=== PATIENT | female | born 1990 | race Caucasian/White ===

== ENCOUNTER 2017-02-02 03:29 | Inpatient (IN) | payer OTHER, SELFPAY | END 2017-02-04 10:00 | disposition home or self-care (01) | DRG 775 | PROVIDERS: Admitting Provider Nurse Practitioner Obstetrics & Gynecology; Visit Provider Nurse Practitioner Obstetrics & Gynecology | DX: O69.81X0 Labor and delivery complicated by cord around neck, without compression, not applicable or unspecified (principal); Z37.0 Single live birth; Z3A.39 39 weeks gestation of pregnancy | CPT/HCPCS: 59409; 36415; 59025; 80305; 81001; 82800; 85014; 85018; 85025; 86850; 86870; 86900; 86901; 90707; 94762; C1758; J0595 ==

== ENCOUNTER → 2017-07-05 10:59 | Outpatient (CLI) | payer OTHER, SELFPAY ==
[2017-07-05 11:28] LABS: Basophils % 0.3 % (0.1-2.0); Eosinophils # 0.2 K/mm3 (0.0-0.4); Eosinophils % 1.4 % (0.1-12.0); Hematocrit 44.4 % (37.0-47.0); Hemoglobin 14.8 g/dL (12.2-16.2); Lymphocytes # 2.9 K/mm3 (0.7-4.5); Lymphocytes % 28.5 K/mm3 (10-50); Mean Corpuscular HGB Conc 33.3 g/dL (31.8-35.4); Mean Corpuscular Hemoglobin 31.2 pg (27.0-31.2); Mean Corpuscular Volume 93.9 fl (81-99); Mean Platelet Volume 7.2 fl (7.4-10.4); Monocytes # 0.6 K/mm3 (0.1-1.0); Monocytes % 5.5 % (1.7-9.3); Neutrophils # 6.6 K/mm3 (1.8-7.8); Neutrophils % 64.3 % (37.0-80.0); Platelet Count 332 K/mm3 (142-424); Red Blood Count 4.72 M/mm3 (4.20-5.40); Red Cell Distribution Width 12.4 % (11.5-17.5); White Blood Count 10.3 K/mm3 (4.8-10.8)
[2017-07-05 12:19] LABS: HCG Qualitative, Serum Negative (Negative)
[2017-07-05 15:09] LABS: Anion Gap 15.7 mEq/L (5-15); Blood Urea Nitrogen 20 mg/dL (7-18); Carbon Dioxide 29 mmol/L (21.0-32.0); Chloride 100 mmol/L (98-107); Creatinine,Serum 0.95 mg/dL (0.55-1.02); Estimated Glomerular Filt Rate 70 ml/min (>60); GFR (African American) 84 ML/MIN (>60); Glucose 89 mg/dL (74-106); Potassium 4.7 mmoL/L (3.5-5.1); Sodium 140 mmol/L (136-145)
== END ==
PROVIDERS: Visit Provider Nurse Practitioner Obstetrics & Gynecology
DX: Z01.818 Encounter for other preprocedural examination (principal)
CPT/HCPCS: 36415; 80048; 84703; 85025

== ENCOUNTER → 2019-05-21 13:50 | Outpatient (CLI) | payer MEDICAID, SELFPAY | PROVIDERS: Visit Provider Emergency Medicine | DX: N39.0 Urinary tract infection, site not specified (principal) | CPT/HCPCS: 87086 ==

== ENCOUNTER 2020-08-10 10:32 | Emergency (ER) | payer MEDICAID, SELFPAY ==
[2020-08-10 10:35] VITALS: BP 149/79; PULSE 76; RESP 17; TEMP 36.6; O2SAT 99; BMI 21.4
[2020-08-10 11:09] LABS: Color,Urine Orange (Yellow)
[2020-08-10 11:10] LABS: Apearance,Urine Cloudy (Clear); Bilirubin,Urine Negative (Negative); Blood, Urine 1+ (Negative); Glucose,Urine (UA) 100 (Negative); Ketones,Urine TRACE (Negative); PH,Urine 5.5 (5.0-8.5); Protein,Urine 1+ (Negative); UTC Leukocyte Esterase,Urine 1+ (Negative); UTC Nitrate,Urine Positive (Negative); Urobilinogen,Urine 1 EU/dl (0.2)
--- NOTE | 2020-08-10 11:18 | HMH.EDUTC ---
[facility] [place] Clinical Impression: UTI (urinary tract infection) Qualifiers: Urinary tract infection type: site unspecified Hematuria presence: with hematuria Qualified Code(s): N39.0 - Urinary tract infection, site not specified Disposition: Home, Self-Care Condition on Discharge: Good Instructions: Trimethoprim/Sulfamethoxazole (Alternative Therapy), DI for Urinary Tract Infection (UTI) Additional Instructions: *Increase fluids. Water not Soda or Tea *Start antibiotic immediately and be sure to take as ordered for the FULL length of time although you should start to see improvement over the next 48 hours *Pyridium as needed Remember this medication will turn your urine [place]. This is normal but it will stain what ever it gets on *You should not use Pyridium for more than 48 hours. If so , follow up with your primary physician to review urine culture and ensure that antibiotic is adequate for infection *Be SURE to follow up anytime for new or worsening symptoms with your family doctor. AND in 48 hours for urine culture results with your family doctor, if you do not have a doctor then you may call back to the [facility] for urine culture results and further treatment. We do recommend that you choose and establish care with a Primary Care Physician. AND follow up with them in 10-14 days to repeat UA to ensure infection is resolved and blood no longer present *Be sure to let your PCP know that we sent urine cultures from the [facility] so they can follow up to ensure that you area the on the correct antibiotic Call your doctor office and make appointment for 48 hours (2 days from today) to follow up and get the results of your urine culture and further treatment Return if needed Follow up with your Family Doctor for further evaluation and treatment and to recheck urine Straight to ER if any life threatening symptoms Prescriptions: Sulfamethoxazole/Trimethoprim [Bactrim DS tablet] 1 each PO BID 7 Days #14 tab Transmission Status: Received by [id number] Phenazopyridine HCl [Pyridium 200mg Tablet] 200 pow PO TID #6 tab Transmission Status: Received by [id number] Referrals: Dariana Paz PA [Primary Care Provider] - As needed Time of Disposition: 11:31 Medical Decision Making - Jaswinder Inquiry Pt receiving controlled substance: No Jaswinder was queried for this patient: No Vital Signs: 08/10/20 10:35 08/10/20 11:32 Temperature 97.9 F 97.9 F Temperature Source Oral Pulse Rate 76 Pulse Rate [Right Brachial] 76 Respiratory Rate 17 17 Blood Pressure 149/79 H Blood Pressure [Right Arm] 149/79 H Blood Pressure Mean [Right Arm] 102 Blood Pressure Source [Right Arm] Automatic Cuff Blood Pressure Position [Right Arm] Sitting 02 Sat by Pulse Oximetry 99 Oxygen Delivery Method Room Air - Lab Data Lab results reviewed: Yes: I reviewed the patient's lab results. Lab Results 08/10/20 11:08: Urine Color [place], Urine Appearance Cloudy, Urine pH 5.5, Ur Specific [place] 1.020, Urine Protein 1+, Urine Glucose (UA) 100, Urine Ketones Trace, Urine Blood 1+, Urine Nitrate Positive A, Urine Bilirubin Negative, Urine Urobilinogen 1, Ur Leukocyte Esterase 1+ A Orders (Tests/Meds): ORDERS Category Date Time Status Urine Culture Stat Micro 08/10/20 11:00 Received Medical Decision Narrative: Patient denies history of kidney stones, denies radiation of pain, denies fever, chill, body aches or weakness [facility] [place] - General Stated complaint: pain when urinating, pain lower abd Time Seen by Provider: 08/10/20 11:18 Mode of Arrival: Ambulatory Source of Information: Patient Limitations: No Limitations Description of Symptoms (Recalled from Triage Doc. by RN): PATIENT C/O LOWER ABDOMINAL AND BACK PAIN WITH PAINFUL URINATION X 3 DAYS HEENT Symptoms (Recalled from RN notes): No Resp Symptoms (Recalled from RN notes): No Skin Symptoms (Recalled from RN notes): No MS Symptoms (Recalled from RN notes): No
[2020-08-10 11:32] VITALS: BP 149/79; PULSE 76; RESP 17; TEMP 36.6; O2SAT 99
== END 2020-08-10 11:36 | disposition home or self-care (01) ==
PROVIDERS: Emergency Provider Nurse Practitioner; PCP Physician Assistant
DX: N30.00 Acute cystitis without hematuria (principal); F33.1 Major depressive disorder, recurrent, moderate; Z87.442 Personal history of urinary calculi; F17.210 Nicotine dependence, cigarettes, uncomplicated; Z88.0 Allergy status to penicillin
CPT/HCPCS: 81003; 87086; 87088; 87186; 87880; 99202; G0463

== ENCOUNTER 2022-04-07 10:08 | Emergency (ER) | payer MEDICAID, SELFPAY ==
--- NOTE | 2022-04-07 10:32 | EXP.UTC ---
Discharge Plan Disposition Patient Disposition: Home, Self-Care Condition: Good Prescriptions Prescriptions: New clindamycin HCl 300 mg capsule 300 mg PO Q8H 10 Days Qty: 30 0RF mupirocin 2 % ointment 1 applic topical TID 10 Days Qty: 22 0RF Rx Instructions: apply to lesions as prescribed No Action venlafaxine 75 mg capsule,extended release 24hr See Rx Instructions .ROUTE .COMPLEX Qty: 30 1RF Dose Instruction: TAKE 1 CAPSULE BY MOUTH EVERY DAY AT BEDTIME FOR DEPRESSION Rx Instructions: TAKE 1 CAPSULE BY MOUTH EVERY DAY AT BEDTIME FOR DEPRESSION phenazopyridine 200 MG tablet 200 pow PO TID Qty: 6 0RF sulfamethoxazole-trimethoprim 1 EACH tablet 1 each PO BID 7 Days Qty: 14 0RF Referrals Follow up/Referrals: Dariana Paz PA [Primary Care Provider] - See instructions Activity Restrictions/Add. Instructions Additional Instructions/Restrictions: Take oral antibiotics as prescribed Follow up with your Family Doctor if no improvement or any worsening of symptoms Return if needed Go Straight to ER if any life threatening symptoms, worsening of symptoms or uncontrollable fever Clinical Impressions Clinical Impression: Impetigo Discharge ED Provider: Erika Osman [facility] HPI General Stated complaint: Rash fever bodyaches congestion drainage Time Seen by Provider: 04/07/22 10:32 History of Present Illness Provider Complaint: Patient states that she noticed she started having sore like lesions on her chin, face, around her hairline, and on her right shoulder States that she has been using neosporin but not got any better States that she was worried it was going to get infected so she came in Related Data Previous Rx's Medication Instructions Recorded phenazopyridine 200 mg tablet 200 pow PO TID #6 tabs 08/10/20 sulfamethoxazole 800 1 each PO BID 7 days #14 tabs 08/10/20 mg-trimethoprim 160 mg tablet venlafaxine 75 mg capsule,extended See Rx Instructions .Route 02/25/22 release 24 hr .COMPLEX #30 caps clindamycin HCl 300 mg capsule 300 mg PO Q8H 10 days #30 caps 04/07/22 mupirocin 2 % topical ointment 1 applic topical TID 10 days #22 04/07/22 grams Allergies Allergy/AdvReac Type Severity Reaction Status Date / Time Penicillins [PENICILLINS] Allergy Mild Verified 04/07/22 10:47 PFSH PFSH Disclaimer: The information contained in this section may have been updated after the patient was seen, as this information can be updated by other users. Social History Smoking Status: Current every day smoker tobacco type: cigarettes packs per day: 1 second hand exposure: No alcohol intake: never substance use type: denies use current occupational status: other Travel in the last 8 weeks: None household members: children housing: house current occupational exposures/hazards: No caffeine: Yes ROS Obtained: Yes All systems reviewed & no additional complaints except as documented and Yes Systems reviewed as appropriate & no additional complaints except as documented Constitutional Constitutional: Reports system reviewed and no additional complaints, except as documented and Reports as per HPI ENT Ears, Nose, Mouth, and Throat: Reports system reviewed and no additional complaints, except as documented and Reports as per HPI Cardiovascular Cardiovascular: Reports system reviewed and no additional complaints, except as documented and Reports as per HPI Respiratory Respiratory: Reports system reviewed and no additional complaints, except as documented and Reports as per HPI Gastrointestinal Gastrointestingal: Reports system reviewed and no additional complaints, except as documented and as per HPI Integumentary/Breasts Skin/Breast: Reports system reviewed and no additional complaints, except as documented, Reports as per HPI and Reports rash Physical Exam General General appearance: alert and in no apparent distress Respiratory Respiratory
[2022-04-07 10:53] VITALS: BP 140/89; PULSE 110; RESP 18; TEMP 36.8; O2SAT 98; BMI 20.5
[2022-04-07 11:15] VITALS: BP 140/90; PULSE 90; RESP 18; TEMP 36.8; O2SAT 98
== END 2022-04-07 11:16 | disposition home or self-care (01) ==
PROVIDERS: Emergency Provider Nurse Practitioner; PCP Physician Assistant
DX: L01.00 Impetigo, unspecified (principal)
CPT/HCPCS: 99212; 99213; G0463

== ENCOUNTER → 2022-06-29 14:38 | Outpatient (CLI) | payer MEDICAID, SELFPAY ==
[2022-06-29 14:36] LABS: Alanine Aminotransferase 233 U/L (12-78); Albumin Level 4.6 g/dl (3.5-5.0); Albumin/Globulin Ratio 1.7 (1.1-1.8); Alkaline Phosphatase 105 U/L (38-126); Anion Gap 19.8 mEq/L (5-15); Bilirubin,Total 0.5 mg/dl (0.2-1.3); Blood Urea Nitrogen 3 mg/dl (7-17); Carbon Dioxide 27 mmol/L (22.0-30.0); Chloride 96 mmol/L (98-107); Estimated Glomerular Filt Rate 183 ml/min (>60); GFR (African American) 221 ML/MIN (>60); Globulin 2.7 g/dL (1.3-3.2); Glucose 108 mg/dl (74-100); Sodium 140 mmol/L (136-145); Total Protein,Serum 7.3 g/dl (6.3-8.2)
[2022-06-29 14:53] LABS: Potassium 2.8 mmoL/L (3.5-5.1)
[2022-06-29 15:04] LABS: Aspartate Amino Transferase 740 U/L (14-36)
[2022-06-29 15:42] LABS: Basophils # 0.1 K/mm3 (0-0.2); Basophils % 1.2 % (0.1-2.0); Eosinophils # 0.1 K/mm3 (0.0-0.4); Eosinophils % 1.6 % (0.1-12.0); Hemoglobin 13.4 g/dL (12.2-16.2); Lymphocytes # 1.6 K/mm3 (0.7-4.5); Lymphocytes % 27.6 % (10-50); Mean Corpuscular HGB Conc 31.2 g/dL (31.8-35.4); Mean Corpuscular Hemoglobin 32.2 pg (27.0-31.2); Mean Corpuscular Volume 103.3 fl (81-99); Mean Platelet Volume 9.3 fl (7.4-10.4); Monocytes # 0.8 K/mm3 (0.1-1.0); Monocytes % 13.3 % (1.7-9.3); Neutrophils # 3.2 K/mm3 (1.8-7.8); Neutrophils % 56.3 % (37.0-80.0); Platelet Count 303 K/mm3 (142-424); Red Blood Count 4.17 M/mm3 (4.20-5.40); Red Cell Distribution Width 15.4 % (11.5-17.5); White Blood Count 5.7 K/mm3 (4.8-10.8)
== END ==
PROVIDERS: PCP Nurse Practitioner Family; Visit Provider Nurse Practitioner Family
DX: F41.9 Anxiety disorder, unspecified (principal)
CPT/HCPCS: 80053; 85025

== ENCOUNTER → 2022-07-01 11:20 | Outpatient (CLI) | payer MEDICAID, SELFPAY ==
[2022-07-01 15:14] LABS: Chloride 92 mmol/L (98-107); Potassium 3.4 mmoL/L (3.5-5.1); Sodium 138 mmol/L (136-145)
[2022-07-01 15:17] LABS: Alanine Aminotransferase 179 U/L (12-78); Albumin Level 4.2 g/dl (3.5-5.0); Albumin/Globulin Ratio 1.8 (1.1-1.8); Alkaline Phosphatase 98 U/L (38-126); Anion Gap 19.4 mEq/L (5-15); Aspartate Amino Transferase 423 U/L (14-36); Bilirubin,Total 0.5 mg/dl (0.2-1.3); Blood Urea Nitrogen 4 mg/dl (7-17); Calcium 8.5 mg/dl (8.4-10.2); Carbon Dioxide 30 mmol/L (22.0-30.0); Estimated Glomerular Filt Rate 183 ml/min (>60); GFR (African American) 221 ML/MIN (>60); Globulin 2.3 g/dL (1.3-3.2); Glucose 100 mg/dl (74-100); Lipase 499 U/L (23-300); Total Protein,Serum 6.5 g/dl (6.3-8.2)
[2022-07-02 09:26] LABS: Vitamin B12 604 pg/mL (239-931)
[2022-07-03 13:33] LABS: HBsAg Screen Negative (Negative); Hep A Ab, IGM Negative (Negative); Hep B Core Ab, IgM Negative (Negative)
[2022-07-09 21:25] LABS: HCV Ab 0 s/co rat (0.0-0.9)
== END ==
PROVIDERS: PCP Family Medicine; Visit Provider Family Medicine
DX: E87.6 Hypokalemia (principal); R74.01 Elevation of levels of liver transaminase levels
CPT/HCPCS: 80053; 80074; 82607; 83690

== ENCOUNTER 2022-10-13 06:09 | Emergency (ER) | payer MEDICAID, SELFPAY ==
--- NOTE | 2022-10-13 06:08 | ECG_ITS ---
APPROVED REPORT Exam: Resting ECG HR:132 bpm ECG Measurements Heart Rate 132 AXES [place] 124 P 78 QRSd 82 QRS 62 QT 332 T 70 QTc 410 Conclusion SINUS TACHYCARDIA NONSPECIFIC T-WAVE ABNORMALITY ABNORMAL RHYTHM ECG UNCONFIRMED REPORT Electronically signed by : Delfino Reyes MD 10/15/2022 08:44:49
[2022-10-13 06:17] VITALS: BP 176/102; PULSE 131; RESP 32; TEMP 36.8; O2SAT 100; BMI 26.1
[2022-10-13 07:05] LABS: Basophils % 0.2 % (0.1-2.0); Eosinophils # 0.2 K/mm3 (0.0-0.4); Eosinophils % 0.8 % (0.1-12.0); Hematocrit 47.7 % (37.0-47.0); Hemoglobin 14.4 g/dL (12.2-16.2); Lymphocytes # 0.7 K/mm3 (0.7-4.5); Lymphocytes % 3.5 % (10-50); Mean Corpuscular HGB Conc 30.2 g/dL (31.8-35.4); Mean Corpuscular Hemoglobin 34.7 pg (27.0-31.2); Mean Platelet Volume 9.3 fl (7.4-10.4); Monocytes # 1.2 K/mm3 (0.1-1.0); Monocytes % 6.4 % (1.7-9.3); Neutrophils # 16.9 K/mm3 (1.8-7.8); Neutrophils % 89.1 % (37.0-80.0); Platelet Count 257 K/mm3 (142-424); Red Blood Count 4.15 M/mm3 (4.20-5.40); Red Cell Distribution Width 13.7 % (11.5-17.5)
[2022-10-13 07:08] LABS: Chloride 93 mmol/L (98-107); Potassium 4.8 mmoL/L (3.5-5.1); Sodium 139 mmol/L (136-145)
--- NOTE | 2022-10-13 07:09 | HMH.EDGENADL ---
Discharge Plan Disposition Patient Disposition: Still a Patient Condition: Fair Prescriptions Prescriptions: No Action venlafaxine 75 mg capsule,extended release 24hr See Rx Instructions .ROUTE .COMPLEX Qty: 30 1RF Dose Instruction: TAKE 1 CAPSULE BY MOUTH EVERY DAY AT BEDTIME FOR DEPRESSION Rx Instructions: TAKE 1 CAPSULE BY MOUTH EVERY DAY AT BEDTIME FOR DEPRESSION montelukast [Singulair] 10 mg tablet 10 mg PO DAILY Qty: 30 2RF potassium chloride 10 mEq capsule, extended release 10 meq PO DAILY Qty: 14 0RF Referrals Follow up/Referrals: Provider,Referral, [Referring] - See instructions Clinical Impressions Clinical Impression: Shortness of breath, Tachycardia, Vomiting, Pneumomediastinum Stand Alone Forms Stand Alone Forms: Transfer Record - ED Discharge ED Provider: Ju Sanches General Adult HPI <Durga Puente MD - Last Filed: 10/13/22 07:19> General Chief complaint: Nausea/Vomiting/Diarrhea Stated complaint: Short of breath Time Seen by Provider: 10/13/22 06:13 Mode of Arrival: Family Vehicle Source of Information: Patient Limitations: No Limitations Description of Symptoms (Recalled from ER Triage Doc. by RN): ALERT AND ORIENTED, COMPLAINS OF N/V ABD PAIN.,SOA; HASN'T HAD HER EFFEXOR FOR 4-5 DAYS History of Present Illness HPI narrative: Is a 32-year-old female with history of anxiety, depression, not currently on control presenting with vomiting. Patient states that she started vomiting about 24 hours prior to arrival. Since that time, developed epigastric abdominal pain. No fevers or chills, dysuria, hematuria, vaginal discharge or bleeding, chest pain, shortness of breath, cough, rash, or any other concerns. Has tried taking Pepto-Bismol, Tylenol and Motrin, but throws everything up. Has not been able to tolerate p.o. intake in about 24 hours. Also, patient states that she ran out of her Effexor about 4 days ago, but takes 75 mg daily. This is not the first time she has run out of this medication, but did not have the symptoms previously. Related Data Previous Rx's Medication Instructions Recorded montelukast 10 mg tablet 10 mg PO DAILY #30 tabs 06/29/22 (Singulair) potassium chloride 10 mEq 10 meq PO DAILY #14 caps 06/29/22 capsule,extended release venlafaxine 75 mg capsule,extended See Rx Instructions .Route 06/29/22 release 24 hr .COMPLEX #30 caps Allergies Allergy/AdvReac Type Severity Reaction Status Date / Time Penicillins [PENICILLINS] Allergy Mild Verified 07/01/22 10:27 PFS <Durga Puente MD - Last Filed: 10/13/22 07:19> PFS Disclaimer: The information contained in this section may have been updated after the patient was seen, as this information can be updated by other users. Social History Smoking Status: Unknown if ever smoked second hand exposure: No alcohol intake: never substance use type: denies use current occupational status: other Travel in the last 8 weeks: None household members: children housing: house current occupational exposures/hazards: No caffeine: Yes <Durga Puente MD - Last Filed: 10/13/22 07:19> ROS Obtained: Yes All systems reviewed & no additional complaints except as documented Physical Exam <Durga Puente MD - Last Filed: 10/13/22 07:19> General General appearance: alert, in no apparent distress, anxious and other ( ) Head Head exam: atraumatic and normocephalic Eye Eye exam: Present normal appearance, PERRL and EOMI ENT ENT exam: Present mucous membranes moist Neck Neck exam: Present normal inspection, full ROM and trachea midline Respiratory Respiratory exam: Absent respiratory distress, wheezes, stridor, accessory muscle use or prolonged expiratory phase Cardiovascular Cardiovascular exam: Present normal rhythm and tachycardia Abdominal Exam Abdominal exam: Present soft and tenderness; Absent distention, guar
[2022-10-13 07:11] LABS: Alanine Aminotransferase 79 U/L (12-78); Albumin/Globulin Ratio 1.3 (1.1-1.8); Alkaline Phosphatase 157 U/L (38-126); Aspartate Amino Transferase 184 U/L (14-36); Bilirubin,Total 2.2 mg/dl (0.2-1.3); Blood Urea Nitrogen 11 mg/dl (7-17); Calcium 9.2 mg/dl (8.4-10.2); Creatinine Clearance Estimated 72 mL/min (50-200); Estimated Glomerular Filt Rate 51 ml/min (>60); GFR (African American) 62 ML/MIN (>60); Globulin 4.7 g/dL (1.3-3.2); Glucose 250 mg/dl (74-100); Lipase 184 U/L (23-300); Total Protein,Serum 10.7 g/dl (6.3-8.2)
--- NOTE | 2022-10-13 07:14 | XR_ITS ---
FINAL REPORT CLINICAL HISTORY: SOA FINDINGS: Two views of the chest were obtained. The heart size and pulmonary vascularity are within normal limits. The mediastinum is normal. No acute pulmonary abnormality is identified. There is no pneumothorax. The bony thorax is intact. IMPRESSION: No active cardiopulmonary disease. Reviewed, Interpreted and Dictated by Juanito Boucher III, MD Transcribed by Latosha Garcia Authenticated and [facility]
[2022-10-13 07:18] LABS: Anion Gap 45.8 mEq/L (5-15); Carbon Dioxide < 5 mmol/L (22.0-30.0)
--- NOTE | 2022-10-13 07:25 | US_ITS ---
FINAL REPORT CLINICAL HISTORY: abd pain/vomiting, transaminitis COMPARISON: None FINDINGS: Sonographic images of the right upper quadrant were obtained. The pancreas is partially obscured. There is fatty infiltration of the liver. The gallbladder appears normal without evidence of gallstones.There is no evidence of biliary ductal dilatation.The common duct measures 3 mm. Limited images of the right kidney are unremarkable. IMPRESSION: Fatty liver. Reviewed, Interpreted and Dictated by Juanito Boucher III, MD Transcribed by Susy Daugherty Authenticated and . [facility]
[2022-10-13 07:32] LABS: MANUAL DIFFERENTIAL MANUAL DIFFERENTIAL (MANUAL DIFF)
--- NOTE | 2022-10-13 07:32 | PC.NURSE ---
pt going to US
[2022-10-13 07:34] LABS: D-Dimer 0.69 ug/mL (0.0-0.5)
[2022-10-13 07:52] LABS: Lymphocytes % 8 % (10-50); Macrocytosis 2+; Monocytes % 2 % (2-9); Neutrophils % 90 % (42-76); Platelet Estimate Normal; Total Cells Counted 100
--- NOTE | 2022-10-13 08:02 | PC.NURSE ---
Addendum entered by Emily Robins RN 10/13/22 08:04: pt return from radiology Original Note: pt to radiology
--- NOTE | 2022-10-13 08:04 | CT_ITS ---
FINAL REPORT CLINICAL HISTORY: pain, shortness of breath, elevated dimer COMPARISON: None FINDINGS: Thin section axial CT images of the chest were obtained with contrast. 3D reformatted images were also obtained. This study was performed with techniques to keep radiation doses as low as reasonably achievable (ALARA). Individualized dose reduction techniques using automated exposure control or adjustment of mA and/or kV according to the patient's size were employed. There is motion artifact on many of the images decreasing sensitivity of this exam. There is no evidence of pulmonary embolism. There is no evidence of thoracic aortic aneurysm or dissection. There is no evidence of mediastinal or hilar mass or adenopathy. There is pneumomediastinum of uncertain etiology. Esophageal perforation not excluded. There is no evidence of pulmonary mass or nodule. No localized inflammatory process is seen within the lungs. There is a calcified granuloma at the right lung base. IMPRESSION: Pneumomediastinum of uncertain etiology. Reviewed, Interpreted and Dictated by Juanito Boucher III, MD Transcribed by Susy Daugherty Authenticated and [facility]
--- NOTE | 2022-10-13 08:04 | CT_ITS ---
FINAL REPORT CLINICAL HISTORY: abd pain, vomiting COMPARISON: None FINDINGS: CT OF THE ABDOMEN AND PELVIS WITH CONTRAST Axial CT images of the abdomen and pelvis were obtained after the administration of IV contrast. Coronal reformatted images were also obtained and reviewed. This study was performed with techniques to keep radiation doses as low as reasonably achievable (ALARA). Individualized dose reduction techniques using automated exposure control or adjustment of mA and/or kV according to the patient's size were employed. There is motion artifact on many of the images decreasing sensitivity of this exam. Abdomen: There is fatty infiltration of the liver. The spleen is unremarkable. No adrenal mass is present. The pancreas has an unremarkable appearance. The kidneys are normal, without evidence of mass or hydronephrosis. The aorta is normal in caliber. There is no free fluid or adenopathy. No mass or abnormal fluid collection is seen. Pelvis: The appendix is not visualized. The urinary bladder is unremarkable. No inflammatory process is seen. There is a 2.4 cm cyst in the right ovary. There is a small cyst in the left ovary. No evidence of adenopathy. There is no evidence of bowel obstruction. IMPRESSION: Fatty liver. Bilateral ovarian cysts up to 2.4 cm on the right. Reviewed, Interpreted and Dictated by Juanito Boucher III, MD Transcribed by Susy Daugherty Authenticated and . [facility]
--- NOTE | 2022-10-13 08:04 | PC.NURSE ---
rad staff gave verbal report on u/s to ER MD Sanches at this time
[2022-10-13 08:23] LABS: HCG Qualitative, Serum Negative (Negative)
[2022-10-13 08:35] VITALS: BP 151/88; PULSE 156; RESP 26; O2SAT 99
[2022-10-13 08:36] LABS: Acetaminophen < 10 ug/ml (10-30); Ethyl Alcohol < 10 mg/dl (0-10)
[2022-10-13 09:01] VITALS: BP 147/104; PULSE 72; O2SAT 97
[2022-10-13 09:14] LABS: T4 (Thyroxine) 7.3 ug/dl (5.53-11.0)
[2022-10-13 09:28] LABS: Thyroid Stimulating Hormone 2.74 uIU/mL (0.465-4.68)
--- NOTE | 2022-10-13 10:04 | PC.NURSE ---
MD at bedside discussing care and tests results thus far.
--- NOTE | 2022-10-13 10:22 | PC.NURSE ---
LAB CALLED FOR REPEAT BLOOD WORK
[2022-10-13 10:30] VITALS: PULSE 116; RESP 26; O2SAT 99
--- NOTE | 2022-10-13 10:37 | PC.NURSE ---
Contacting [facility] center
--- NOTE | 2022-10-13 10:40 | PC.NURSE ---
Dr. Sanches speaking with for possible transfer
--- NOTE | 2022-10-13 10:40 | PC.NURSE ---
1set of blood cultures, lactic, and chemistries collected from pt's IV @ [facility]
--- NOTE | 2022-10-13 10:41 | PC.NURSE ---
Lab at bedside to collect 2nd blood cultures
[2022-10-13 10:57] VITALS: BP 148/105; PULSE 121; O2SAT 100
[2022-10-13 11:09] LABS: Blood Urea Nitrogen 10 mg/dl (7-17); Calcium 7.9 mg/dl (8.4-10.2); Chloride 100 mmol/L (98-107); Creatinine Clearance Estimated 108 mL/min (50-200); Estimated Glomerular Filt Rate 82 ml/min (>60); GFR (African American) 99 ML/MIN (>60); Glucose 143 mg/dl (74-100); Lactic Acid 1.3 mmol/L (0.7-2.1); Potassium 5.3 mmoL/L (3.5-5.1); Sodium 135 mmol/L (136-145)
[2022-10-13 11:15] LABS: Anion Gap 35.3 mEq/L (5-15); Carbon Dioxide < 5 mmol/L (22.0-30.0)
--- NOTE | 2022-10-13 11:19 | PC.NURSE ---
critical lab reported to md gates CO2 less than 5
--- NOTE | 2022-10-13 11:54 | PC.NURSE ---
Report given to [id number]. Called Cardiac ICU and s/w Madina, clarified [facility] would go to 2nd floor CICU and are leaving now.
[2022-10-13 12:00] VITALS: BP 150/107; PULSE 115; RESP 25; TEMP 37.2; O2SAT 95
[2022-10-13 12:01] LABS: Microscopic, Urine URINE MICROSCOPIC (MICROSCOPIC)
[2022-10-13 12:02] LABS: Appearance,Urine CLEAR (Clear); Blood, Urine 2+ (Negative); Color,Urine YELLOW (Yellow); Glucose,Urine (UA) Negative (Negative); Ketones,Urine 3+ (Negative); Leukocyte Esterase,Urine Negative (Negative); Nitrate,Urine Negative (Negative); Protein,Urine 2+ (Negative); Urobilinogen,Urine 0.2 EU/dl (0.2)
[2022-10-13 12:04] LABS: Bilirubin,Urine 1+ (Negative)
[2022-10-13 12:14] LABS: Bacteria,Urine Trace /lpf; Squamous Epithelial Cell,Urine Occasional #/hpf (0-5)
== END 2022-10-13 12:02 | disposition still patient (30) ==
PROVIDERS: Emergency Medicine; Emergency Provider Emergency Medicine; PCP Physician Assistant
DX: J98.2 Interstitial emphysema (principal); R00.0 Tachycardia, unspecified; R11.10 Vomiting, unspecified; R10.13 Epigastric pain; F41.9 Anxiety disorder, unspecified; F32.A Depression, unspecified
CPT/HCPCS: 71046; 71275; 74177; 76705; 80048; 80053; 80329; 81001; 83605; 83690; 84436; 84443; 84703; 85007; 85025; 85378; 87040; 93005; 96361; 96374; 96375; 99291; J1956; J2405; Q9967

== ENCOUNTER 2023-03-19 15:37 | Observation (INO) | payer MEDICAID, SELFPAY ==
[2023-03-19] VITALS (7 sets, daily range): BP systolic 144–163; BP diastolic 90–112; PULSE 85–105; RESP 16–20; TEMP 36.9–37; O2SAT 95–99; BMI 21.0; BMI 20.8
--- NOTE | 2023-03-19 15:37 | ECG_ITS ---
APPROVED REPORT Exam: Resting ECG HR:88 bpm ECG Measurements Heart Rate 88 AXES [place] 92 P 72 QRSd 84 QRS 56 QT 386 T -27 QTc 431 Conclusion SINUS RHYTHM WITH SHORT [place] INTERVAL ST DEVIATION AND MODERATE T-WAVE ABNORMALITY, CONSIDER ANTEROLATERAL ISCHEMIA [-0.1+ mV T-WAVE IN V3-V6] ABNORMAL ECG UNCONFIRMED REPORT Electronically signed by : Delfino Reyes MD 03/21/2023 17:31:35
[2023-03-19 15:53] LABS: Basophils % 0.5 % (0.1-2.0); Eosinophils # 0.1 K/mm3 (0.0-0.4); Eosinophils % 0.6 % (0.1-12.0); Hematocrit 44.1 % (37.0-47.0); Hemoglobin 14.5 g/dL (12.2-16.2); Lymphocytes # 0.5 K/mm3 (0.7-4.5); Lymphocytes % 5.6 % (10-50); Mean Corpuscular HGB Conc 32.9 g/dL (31.8-35.4); Mean Corpuscular Volume 94.2 fl (81-99); Mean Platelet Volume 9.2 fl (7.4-10.4); Monocytes # 0.5 K/mm3 (0.1-1.0); Monocytes % 6.1 % (1.7-9.3); Neutrophils # 7.7 K/mm3 (1.8-7.8); Neutrophils % 87.2 % (37.0-80.0); Platelet Count 179 K/mm3 (142-424); Red Blood Count 4.68 M/mm3 (4.20-5.40); Red Cell Distribution Width 19.2 % (11.5-17.5); White Blood Count 8.8 K/mm3 (4.8-10.8)
[2023-03-19] MEDS: 0.9 % SODIUM CHLORIDE 1000ML 1,000 ML 999 ML IV (15:53)
[2023-03-19] MEDS: ONDANSETRON 4MG/2ML VIAL 4 MG IV (15:53)
[2023-03-19 15:54] LABS: Chloride 92 mmol/L (98-107); Sodium 143 mmol/L (136-145)
--- NOTE | 2023-03-19 15:54 | ED_ITS ---
Discharge Plan Disposition Patient Disposition: Admitted Prescriptions Prescriptions: New chlordiazepoxide HCl 25 mg capsule See Rx Instructions .ROUTE .COMPLEX Qty: 15 0RF Rx Instructions: Day 1: 50mg every 6 hours Day 2: 25mg every 6 hours Day 3: 25mg every 12 hours Day 4: 25mg at night (Rx 15x 25mg tabs) Max 300mg per 24 hours ondansetron 4 mg tablet,disintegrating 4 mg PO Q6H PRN (Reason: nausea and vomiting) Qty: 10 0RF No Action K-Phos Original 500 mg tablet,soluble 500 mg PO TID Qty: 90 5RF pantoprazole [Protonix] 40 mg tablet,delayed release (DR/EC) 40 mg PO DAILY Qty: 90 1RF folic acid 1 mg tablet 1 mg PO DAILY Qty: 30 5RF albuterol sulfate [Proventil HFA] 90 mcg/actuation HFA aerosol inhaler 2 puff inhalation Q6H PRN (Reason: shortness of breath or wheezing) Qty: 8.5 5RF Referrals Follow up/Referrals: Provider,Referral, MD [Primary Care Provider] - See instructions Clinical Impressions Clinical Impression: Alcohol withdrawal, Hepatitis, Intractable nausea and vomiting Discharge ED Provider: Durga Puente General Chief Complaint: Chest Pain Stated Complaint: chest pain Time Seen by Provider: 03/19/23 15:39 Mode of Arrival: Ambulatory Source of Information: Patient Limitations: No Limitations Description of Symptoms (Recalled from ER Triage Doc. by RN): nausea,vomiting, and new onset CP since today. History of Present Illness HPI narrative: 32-year-old female with history of vomiting resulting in mediastinal air and concern for esophageal rupture (worked up at [facility] and no evidence of esophageal tear) presenting with vomiting. She states that she is been vomiting since yesterday. Nonbloody, nonbilious vomiting. No evidence of diarrhea. Patient has not had fevers or chills, but vomits even in the absence of p.o. intake. Concerned because of her previous experience. No abdominal pain in the absence of vomiting, but chest and esophageal burning from stomach acid. Related Data Previous Rx's Medication Instructions Recorded albuterol sulfate 90 mcg/actuation 2 puff inhalation Q6H PRN 10/26/22 aerosol inhaler (Proventil HFA) shortness of breath or wheezing #8.5 grams folic acid 1 mg tablet 1 mg PO DAILY #30 tabs 10/26/22 pantoprazole 40 mg tablet,delayed 40 mg PO DAILY #90 tabs 10/26/22 release (Protonix) potassium phosphate, monobasic 500 500 mg PO TID #90 tabs 10/26/22 mg soluble tablet (K-Phos Original) chlordiazepoxide HCl 25 mg capsule See Rx Instructions .Route 03/19/23 .COMPLEX #15 caps ondansetron 4 mg disintegrating 4 mg PO Q6H PRN nausea and 03/19/23 tablet vomiting #10 tabs Allergies Allergy/AdvReac Type Severity Reaction Status Date / Time Penicillins [PENICILLINS] Allergy Mild Verified 10/26/22 10:00 [facility] Disclaimer: The information contained in this section may have been updated after the patient was seen, as this information can be updated by other users. Medical History (Updated 03/19/23 @ 18:09 by Durga Puente MD) Nexplanon insertion Social History Smoking Status: Former smoker tobacco type: cigarettes packs per day: 1 second hand exposure: No alcohol intake: never substance use type: denies use current occupational status: other Travel in the last 8 weeks: None household members: children housing: house current occupational exposures/hazards: No caffeine: Yes ROS Obtained: Yes All systems reviewed & no additional complaints except as documented Physical Exam General General appearance: alert and anxious Neck Neck exam: Present trachea midline Chest Chest inspection: Present normal inspection and symmetric chest wall rise Respiratory Respiratory exam: Present normal lung sounds bilaterally; Absent respiratory distress, wheezes, stridor, accessory muscle use or prolonged expiratory phase Cardiovascular Cardiovascular exam: Present regular rate and normal rhythm Extremities Exam Extremities exam: Absent edema Neurological Exam Neurological exam: Present alert, oriented X3, CN II-XII intact and other (Tremulous) Skin Skin exam: Present warm, dry and pallor; Absent cyanosis or diaphoresis HEART Score HEART Score HEART Score assessment performed?: Yes HEART Score: 0 Critical Care Critical Care Time Critical Care Time: No Medical Decision Making Medical Records Medical records reviewed: Yes I reviewed the patient's medical records. Jaswinder Inquiry Pt receiving controlled substance: No Jaswinder was queried for this patient: No Vital Signs Vital Signs: 03/19/23 15:38 03/19/23 16:00 03/19/23 16:30 Temperature 98.4 F Temperature Source Oral Pulse Rate 87 85 Pulse Rate [Right Radial] 90 Respiratory Rate 18 Blood Pressure 162/104 H 152/99 H Blood Pressure [Right Arm] 163/112 H Blood Pressure Mean Blood Pressure Mean [Right Arm] 129 02 Sat by Pulse Oximetry 97 95 96 Oxygen Delivery Method Room Air Room Air Room Air 03/19/23 16:58 Temperature Temperature Source Pulse Rate 99 H Pulse Rate [Right Radial] Respiratory Rate 18 Blood Pressure 157/95 H Blood Pressure [Right Arm] Blood Pressure Mean 116 Blood Pressure Mean [Right Arm] 02 Sat by Pulse Oximetry 96 Oxygen Delivery Method Lab Data Labs: Lab Results 03/19/23 15:38: WBC 8.8, RBC 4.68, Hgb 14.5, Hct 44.1, MCV 94.2, MCH 31.0, MCHC 32.9, RDW 19.2 H, Plt Count 179, MPV 9.2, Neut % (Auto) 87.2 H, Lymph % (Auto) 5.6 L, [place] % (Auto) 6.1, Eos % (Auto) 0.6, Baso % (Auto) 0.5, Neut # (Auto) 7.7, Lymph # (Auto) 0.5 L, [place] # (Auto) 0.5, Eos # (Auto) 0.1, Baso # (Auto) 0.0, Total Counted 100, Neutrophils % (Manual) 87 H, Band Neutrophils % 1.0, Lymphocytes % (Manual) 10, Monocytes % (Manual) 1 L, Eosinophils % (Manual) 1, Platelet Estimate Normal, RBC Morphology Normal, Sodium 143, Potassium 3.8, Chloride 92 L, Carbon Dioxide 26, Anion Gap 28.8 H, BUN 11, Creatinine 0.90, Estimated Creat Clear 73, Estimated GFR 72, Est GFR ( Amer) 87, Glucose 116 H, Calcium 11.3 H, Total Bilirubin 1.0, AST 672 H*, ALT 182 H, Alkaline Phosphatase 131 H, Troponin I < 0.01, Total Protein 8.8 H, Albumin 5.3 H, Globulin 3.5 H, Albumin/Globulin Ratio 1.5, Lipase 139, HCG, Quant < 2, Acetaminophen < 10 L, Plasma/Serum Alcohol 28 H 03/19/23 15:38 03/19/23 15:38 Response Orders (Tests/Meds): ED MEDICATIONS Generic Name Dose Route Start Last Admin Trade Name Freq PRN Reason Stop Dose Admin Lorazepam 2 mg 03/19/23 16:48 03/19/23 16:52 Lorazepam 2mg/Ml Vial IV 04/18/23 16:47 2 mg Q1HP PRN Administration CIWA >16 Sodium Chloride 10 ml 03/19/23 16:48 Sodium Chloride 0.9% 10ml Vial IV 04/18/23 16:47 NEEDED PRN to Dilute Lorazepam inj Discontinued Medications Generic Name Dose Route Start Last Admin Trade Name Freq PRN Reason Stop Dose Admin Belladonna Alkaloids 60 ml 03/19/23 15:55 03/19/23 16:05 Belladonna Alkaloids 60 Ml Ml PO 03/19/23 15:56 60 ml ONCE ONE Administration Sodium Chloride 1,000 mls @ 999 mls/hr 03/19/23 16:00 03/19/23 15:53 Sod Chlor 0.9% 1000ml Bag IV 03/19/23 17:00 999 mls/hr .Q1H1M VICTOR MANUEL Administration Ondansetron HCl 4 mg 03/19/23 15:46 03/19/23 15:53 Ondansetron 4mg/2ml Vial IV 03/19/23 15:47 4 mg ONCE ONE Administration ORDERS Category Date Time Status CXR --portable [XR chest portable] Stat Exams 03/19/23 16:40 Completed Acetaminophen Stat Lab 03/19/23 15:38 Completed Complete Blood Count Auto Diff Stat Lab 03/19/23 15:38 Completed Comprehensive Metabolic Panel Stat Lab 03/19/23 15:38 Completed Ethanol [Ethyl Alcohol] Stat Lab 03/19/23 15:38 Completed HCG,Quantitative Stat Lab 03/19/23 15:38 Completed Hepatitis Panel Stat Lab 03/19/23 16:01 Ordered Lactic Acid Stat Lab 03/19/23 16:01 Ordered Lipase Stat Lab 03/19/23 15:38 Completed Trop I [Troponin I] Stat Lab 03/19/23 15:38 Completed Troponin I Q3H Lab 03/19/23 19:00 Ordered Troponin I Q3H Lab 03/19/23 22:00 Ordered MDM Narrative Medical Decision Narrative: 32-year-old female with history of vomiting resulting in mediastinal air and concern for esophageal rupture (worked up at [facility] and no evidence of esophageal tear) presenting with vomiting. She states that she is been vomiting since yesterday. Nonbloody, nonbilious vomiting. No evidence of diarrhea. Patient has not had fevers or chills, but vomits even in the absence of p.o. intake. Concerned because of her previous experience. No abdominal pain in the absence of vomiting, but chest and esophageal burning from stomach acid. History was obtained via conversation with patient. On arrival, patient hemodynamically stable, alert, oriented x4, appropriate, GCS 15, moving all extremities spontaneously, pupils equal and reactive to light. Full physical exam performed and significant for tremulous, hypertensive, tachycardic woman who is not actively vomiting on my evaluation. Abdomen is soft, nontender. Lungs clear to auscultation no evidence of crepitus. Saturating appropriately. Differential includes esophageal rupture, ACS, NC, pancreatitis, PUD, , intoxication, withdrawal, among others. Patient was given Zofran, fluids, GI cocktail for symptomatic management and correction of underlying abnormalities. Workup independently interpreted and significant for nonactionable CBC. C hemistry concerning for AST to ALT ratio of about 4-1 and mildly elevated alkaline phosphatase. Bilirubin normal. This concerning for alcoholic hepatitis. Ethanol level mildly elevated. Chest x-ray without mediastinal free air, subdiaphragmatic air, or subcutaneous free air. See radiology read for full review of final results. Independent interpretation of EKG shows sinus tachycardia without ST or T wave changes concerning for acute ischemia. [place], QRS, QT intervals within normal limits. [place] normal. Heart score 0. On reevaluation, patient admits to daily drinking of about a pint of hard liquor a day. Because patient having acute vomiting syndrome and elevation LFTs, I felt it safe for patient to be admitted for trending LFTs to make sure she is not approaching acute liver failure. Hospital medicine was contacted and case was discussed at length, agreeable to this plan. Given patient presentation, workup, history, this most likely represents acute alcoholic hepatitis without pancreatitis. Regarding social determinants of health, further conversation had with patient regarding which drinking, she states that she wants to stop drinking as soon as she leaves the hospital. Librium taper was sent to the pharmacy, alongside Zofran. Because patient high risk for clinical d ecompensation, deemed appropriate for inpatient admission. Results were relayed to patient who voiced understanding and patient was agreeable to inpatient admission and management. Patient was admitted to the hospital for further definitive management.
[2023-03-19 15:55] LABS: Potassium 3.8 mmoL/L (3.5-5.1)
[2023-03-19 15:56] LABS: MANUAL DIFFERENTIAL MANUAL DIFFERENTIAL (MANUAL DIFF)
[2023-03-19 15:57] LABS: Alanine Aminotransferase 182 U/L (12-78); Albumin Level 5.3 g/dl (3.5-5.0); Albumin/Globulin Ratio 1.5 (1.1-1.8); Alkaline Phosphatase 131 U/L (38-126); Anion Gap 28.8 mEq/L (5-15); Aspartate Amino Transferase 672 U/L (14-36); Blood Urea Nitrogen 11 mg/dl (7-17); Carbon Dioxide 26 mmol/L (22.0-30.0); Creatinine Clearance Estimated 73 mL/min (50-200); Estimated Glomerular Filt Rate 72 ml/min (>60); GFR (African American) 87 ML/MIN (>60); Globulin 3.5 g/dL (1.3-3.2); Total Protein,Serum 8.8 g/dl (6.3-8.2)
[2023-03-19 15:58] LABS: Calcium 11.3 mg/dl (8.4-10.2); Glucose 116 mg/dl (74-100)
[2023-03-19] MEDS: BELLADONNA ALKALOIDS 60 ML ML PO (16:05)
[2023-03-19 16:06] LABS: Lipase 139 U/L (23-300)
[2023-03-19 16:09] LABS: Eosinophils % 1 % (0-3); Lymphocytes % 10 % (10-50); Monocytes % 1 % (2-9); Neutrophils % 87 % (42-76); Platelet Estimate Normal; RBC Morphology Normal; Total Cells Counted 100
[2023-03-19 16:19] LABS: Troponin I < 0.01 ng/ml (0.00-0.034)
[2023-03-19 16:25] LABS: HCG,Quantitative < 2 mIU/ml (0-5.42)
[2023-03-19 16:36] LABS: Ethyl Alcohol 28 mg/dl (0-10)
[2023-03-19 16:39] LABS: Acetaminophen < 10 ug/ml (10-30)
--- NOTE | 2023-03-19 16:40 | XR_ITS ---
PROCEDURE INFORMATION: Exam: XR Chest Exam date and time: 03/19/2023 4:41 PM Age: 32 years old Clinical indication: Other: Chest pain; Additional info: Cp and abd pain, rule out mediastinal air TECHNIQUE: Imaging protocol: Radiologic exam of the chest. Views: 1 view. COMPARISON: CT ANGIO CHEST PE PROTOCOL 10/13/2022 9:18 AM FINDINGS: Lungs: Unremarkable. No consolidation. Pleural spaces: Unremarkable. No pleural effusion. No pneumothorax. Heart/Mediastinum: Unremarkable. No cardiomegaly. Bones/joints: Unremarkable. IMPRESSION: No acute findings.
--- NOTE | 2023-03-19 16:46 | PC.NURSE ---
XRAY AT BS
[2023-03-19] MEDS: LORazepam 2MG/ML VIAL 2 MG IV (16:52)
--- NOTE | 2023-03-19 17:01 | PC.NURSE ---
per pts family she drinks approx 1 pint daily. pt KARL 16. has been medicated @ this time. MD @ bedside
--- NOTE | 2023-03-19 18:38 | PC.NURSE ---
arrive by w/c from ED
[2023-03-19 18:53] LABS: Activated Partial Thrombo Time 24.4 seconds (22.8-30.6); INR 1.12 (0.9-1.1)
[2023-03-19 18:54] LABS: Phosphorous 6.8 mg/dl (2.5-4.5)
[2023-03-19 19:10] LABS: Magnesium 0.8 mg/dl (1.6-2.3)
[2023-03-19 19:42] LABS: Basophils % 0.3 % (0.1-2.0); Eosinophils % 0.1 % (0.1-12.0); Hematocrit 36.8 % (37.0-47.0); Lymphocytes # 0.4 K/mm3 (0.7-4.5); Lymphocytes % 6.4 % (10-50); Mean Corpuscular HGB Conc 33.1 g/dL (31.8-35.4); Mean Corpuscular Hemoglobin 31.9 pg (27.0-31.2); Mean Corpuscular Volume 96.4 fl (81-99); Mean Platelet Volume 8.9 fl (7.4-10.4); Monocytes # 0.5 K/mm3 (0.1-1.0); Monocytes % 7.3 % (1.7-9.3); Neutrophils # 5.9 K/mm3 (1.8-7.8); Neutrophils % 85.8 % (37.0-80.0); Platelet Count 117 K/mm3 (142-424); Red Blood Count 3.82 M/mm3 (4.20-5.40); Red Cell Distribution Width 19.5 % (11.5-17.5); White Blood Count 6.9 K/mm3 (4.8-10.8)
[2023-03-19] MEDS: FOLIC ACID 1MG TABLET 1 MG PO (19:48)
[2023-03-19] MEDS: MVI, ADULT NO.1 WITH VIT K 10 ML, THIAMINE HCL 100 MG, MAGNESIUM SULFATE 2 GM in LACTAT... 150 ML IV (19:50)
--- NOTE | 2023-03-19 19:54 | P.HP_ITS ---
History of Present Illness *Admission Date: 03/19/23 *Reason for visit:: N/V *History of present illness: This a 32-year-old female with PMHx of MDD. PTSD, alcohol abuse, vomiting resulting in pneumomediastino, initially worked up at [facility] with no evidence of esophageal tear. Patient presented today with vomiting. She states that she is been vomiting since yesterday. Nonbloody, nonbilious vomiting. No evidence of diarrhea. Patient has not had fevers or chills, but vomits even in the absence of p.o. intake. Concerned because of her previous experience. No abdominal pain in the absence of vomiting, but chest and esophageal burning from stomach acid. Patient reported last drink about 24 hrs ago. Admitted for further treatment and management [facility] Disclaimer: The information contained in this section may have been updated after the patient was seen, as this information can be updated by other users. Medical History (Updated 03/19/23 @ 23:06 by Guilherme Frias APRN) Nexplanon insertion Surgical History (Updated 03/19/23 @ 21:37 by Elizabeth Garrido RN) S/P urethral diverticulectomy Tubal ligation status Family History (Updated 03/19/23 @ 21:39 by Elizabeth Garrido RN) Mother Uterine cancer Colon cancer Family history of diabetes mellitus type II Social History (Updated 03/19/23 @ 21:41 by Elizabeth Garrido RN) Smoking Status: Former smoker tobacco type: cigarettes packs per day: 1 smoking status start date: 2008 smoked: 14 smoking status stop date: 02/16/2023 quit status: quit date established second hand exposure: No alcohol intake: current substance use type: denies use current occupational status: other Travel in the last 8 weeks: None household members: children housing: house current occupational exposures/hazards: No caffeine: Yes Review of Systems Review of Systems Review of systems:: pertinent systems reviewed and negative unless documented below Meds Home Medications and Allergies Home Medications Medication Instructions Recorded Confirmed Type albuterol sulfate 90 mcg/actuation 2 puff inhalation Q6H PRN 10/26/22 03/20/23 Rx aerosol inhaler (Proventil HFA) shortness of breath or wheezing #8.5 grams chlordiazepoxide HCl 5 mg capsule 5 mg PO TID PRN anxiety 3 days #9 03/20/23 Rx caps folic acid 1 mg tablet 1 mg PO DAILY 30 days #30 tabs 03/20/23 Rx multivitamin with folic acid 400 1 tab PO 1700 30 days #30 tabs 03/20/23 Rx mcg tablet (Tab-A-Laurence) pantoprazole 40 mg tablet,delayed 40 mg PO DAILY Acid Reflux 03/20/23 03/20/23 History release thiamine mononitrate (vit B1) 100 100 mg PO DAILY 30 days #30 tabs 03/20/23 Rx mg tablet New Prescriptions to Start Prescriptions: chlordiazepoxide HCl South,Irfan folic acid South,Irfan multivitamin with folic acid [Tab-A-Laurence] South,Irfan thiamine mononitrate (vit B1) South,Irfan Allergies Allergy/AdvReac Type Severity Reaction Status Date / Time Penicillins [PENICILLINS] Allergy Mild Verified 10/26/22 10:00 Exam Data for Last 24 hours Vital signs and Labs for Last 24 Hours: Temp Pulse Resp BP Pulse Ox O2 Del Method 98.4 F 96 H 16 153/101 H 95 Room Air 03/19/23 18:41 03/19/23 18:41 03/19/23 18:41 03/19/23 18:41 03/19/23 18:41 03/19/23 18:41 Laboratory Results - last 24 hr 03/19/23 15:38: WBC 8.8, RBC 4.68, Hgb 14.5, Hct 44.1, MCV 94.2, MCH 31.0, MCHC 32.9, RDW 19.2 H, Plt Count 179, MPV 9.2, Neut % (Auto) 87.2 H, Lymph % (Auto) 5.6 L, [place] % (Auto) 6.1, Eos % (Auto) 0.6, Baso % (Auto) 0.5, Neut # (Auto) 7.7, Lymph # (Auto) 0.5 L, [place] # (Auto) 0.5, Eos # (Auto) 0.1, Baso # (Auto) 0.0, Total Counted 100, Neutrophils % (Manual) 87 H, Band Neutrophils % 1.0, Lymphocytes % (Manual) 10, Monocytes % (Manual) 1 L, Eosinophils % (Manual) 1, Platelet Estimate Normal, RBC Morphology Normal, PT 12.0, INR 1.12 H, APTT 24.4, Sodium 143, Potassium 3.8, Chloride 92 L, Carbon Dioxide 26, Anion Gap 28.8 H, BUN 11, Creatinine 0.90, Estimated Creat Clear 73, Estimated GFR 72, Est GFR ( Amer) 87, Glucose 116 H, Calcium 11.3 H, Phosphorus 6.8 H, Magnesium 0.8 L, Total Bilirubin 1.0, AST 672 H*, ALT 182 H, Alkaline Phosphatase 131 H, Troponin I < 0.01, Total Protein 8.8 H, Albumin 5.3 H, Globulin 3.5 H, Albumin/Globulin Ratio 1.5, Lipase 139, HCG, Quant < 2, Acetaminophen < 10 L, Plasma/Serum Alcohol 28 H I & O for Last 24 hours: Intake & Output 03/16/23 03/17/23 03/18/23 03/19/23 23:59 23:59 23:59 23:59 Weight 51.71 kg Constitutional Constitutional: mild distress and cooperative *Routine HEENT Exam Head: Present normocephalic and atraumatic Eye: Present EOMI, PERRL and normal accommodation ENT: Present mucous membranes moist *Routine Neck Exam Neck: Present supple, full ROM and trachea midline *Routine Respiratory Exam Respiratory: Present normal respiratory effort, able to speak in complete sentences and symmetric chest movement; Absent respiratory distress *Routine Cardiovascular Exam Cardiovascular: Present RRR, Normal S1, Normal S2 and tachycardia *Routine Abdominal Exam Abdominal: Present soft, normoactive bowel sounds and guarding; Absent o rganomegaly *Routine Rectal Exam Rectal:: deferred *Routine Genitalia Exam Genitalia:: deferred *Routine Extremities Exam Extremities: Present full ROM and pulses intact; Absent cyanosis, clubbing or edema *Routine Skin Exam Skin: Present intact, dry and warm *Routine Neurological Exam Neurological: Present alert, oriented X3, normal reflexes, moving all extremities, normal speech and tremors Routine Psychiatric Exam Psychiatric: Present normal thought process, cooperative, depressed, anxious and agitated H&P: Result Imaging and Cardiology Chest x-ray: Status: image reviewed by me, Preliminary report and final report EKG: Status: image reviewed by me and Preliminary report Assessment and Plan *Assessment and plan (1) Intractable nausea and vomiting: Status: Acute Category: Medical Code(s): R11.2 - Nausea with vomiting, unspecified (2) Alcohol withdrawal: Status: Acute Qualifiers: Complication of substance-induced condition: uncomplicated Qualified Code(s): F10.930 - Alcohol use, unspecified with withdrawal, uncomplicated Category: Medical Code(s): F10.939 - Alcohol use, unspecified with withdrawal, unspecified (3) Chronic alcoholic hepatitis: Status: Acute Category: Medical Code(s): K70.10 - Alcoholic hepatitis without ascites (4) Anxiety: Status: Acute Category: Medical Code(s): F41.9 - Anxiety disorder, unspecified (5) Depression: Status: Acute Qualifiers: Active/Remission status: remission status unspecified Depression Type: major depressive disorder Major depression recurrence: recurrent Qualified Code(s): F33.9 - Major depressive disorder, recurrent, unspecified Category: Medical Code(s): F32.A - Depression, unspecified Plan 32-year-old female with PMHx of MDD. PTSD, alcohol abuse, vomiting resulting in pneumomediastino, initially worked up at [facility] with no evidence of esophageal tear. Patient presented today with vomiting. She states that she is been vomiting since yesterday. On arrival, presented hypertensive, tachycardic, actively vomiting. Chemistry concerning for AST to ALT ratio of about 4-1 and mildly elevated alkaline phosphatase. Bilirubin normal. This concerning for alcoholic hepatitis. Ethanol level mildly elevated. CXR negative. Imaging reviewed. Findings discussed with ER provider for admission. Plan as follow: -Intractable nausea and vomiting, likely secondary to alcohol withdrawal Chronic alcoholic hepatitis: Admit patient for medical services. Dispo MedSurg. Start continuous monitoring of CIWA CIWA protocol Vital signs per unit Banana bag with thiamine IV Continue with thiamine 100 mg daily Librium 25 mg every 6h. May taper doses on second day Zofran IV as needed for nausea Advance diet as tolerated Seizure precaution. Lorazepam IV as needed for CIWA score greater than 8 Monitor daily CMP. Patient presented with open anion gap likely secondary to vitamin B-1 deficiency. Replaced Elevated AST/ALT.continue monitor Patient expressed concern to stop drinking. Will refer for social work. For detox program after medical stabilization -Anxiety and depression: Patient was previously on effexor. Unknown dose. Will start duloxetine, due to associated HTN [facility] Protonix 40 GI bleed prophylaxis. And history of GERD with esophagitis Full code Attending attestation Patient was seen and evaluated at the bedside myself, agree with KARLENE note.
[2023-03-19 19:55] LABS: Hemoglobin 12.2 g/dL (12.2-16.2)
[2023-03-19 20:02] LABS: Troponin I < 0.01 ng/ml (0.00-0.034)
[2023-03-19] MEDS: MVI, ADULT NO.1 WITH VIT K 10 ML, THIAMINE HCL 100 MG, MAGNESIUM SULFATE 2 GM in LACTAT... 125 ML IV (20:04)
[2023-03-19] MEDS: THIAMINE 100MG TABLET 100 MG PO (20:05)
[2023-03-19] MEDS: ENOXAPARIN 40MG/0.4ML SYRINGE 40 MG SQ (20:44)
[2023-03-19] MEDS: PANTOPRAZOLE 40MG VIAL 40 MG IV (22:12)
[2023-03-19 22:34] LABS: Lactic Acid 2.3 mmol/L (0.7-2.1)
--- NOTE | 2023-03-19 23:02 | PC.NURSE ---
0 lab called critical mag level of 0.[address] Tirado at same time. no new orders received.
[2023-03-20 02:13] LABS: Reflex Lactic Add Lactic Reflex
--- NOTE | 2023-03-20 03:13 | PC.NURSE ---
PATIENT SCORING 1 ON CIWA. NO VISABLE SIGNS OF ALCOHOL WITHDRAWAL. A/O X 4. SPEECH CLEAR AND APPROPRIATE. DENIES PAIN, HALLUCINATIONS ETC.... RALLY PACK/LR BAG INFUSING.
[2023-03-20 03:32] LABS: Lactic Acid Follow Up (RFLX 1) 1.4 mmol/L (0.7-2.1)
[2023-03-20 04:00] VITALS: BP 144/83; PULSE 86; RESP 17; TEMP 36.6; O2SAT 96; BMI 22.9
[2023-03-20 07:37] VITALS: BP 140/95; PULSE 82; RESP 16; TEMP 36.7; O2SAT 98
[2023-03-20 08:52] LABS: Basophils % 0.3 % (0.1-2.0); Eosinophils % 0.1 % (0.1-12.0); Hematocrit 37.9 % (37.0-47.0); Hemoglobin 12.6 g/dL (12.2-16.2); Lymphocytes % 18.7 % (10-50); Mean Corpuscular HGB Conc 33.2 g/dL (31.8-35.4); Mean Corpuscular Hemoglobin 31.1 pg (27.0-31.2); Mean Corpuscular Volume 93.8 fl (81-99); Mean Platelet Volume 9.7 fl (7.4-10.4); Monocytes # 0.4 K/mm3 (0.1-1.0); Monocytes % 6.6 % (1.7-9.3); Neutrophils % 74.3 % (37.0-80.0); Platelet Count 115 K/mm3 (142-424); Red Blood Count 4.04 M/mm3 (4.20-5.40); White Blood Count 5.4 K/mm3 (4.8-10.8)
--- NOTE | 2023-03-20 08:59 | HMH.PHAINT1 ---
Pharmacy Intervention Comments: MEDICATION RECONCILIATION COMPLETE USING EXTERNAL PHARMACY FILL HISTORY.
[2023-03-20 09:00] LABS: Alanine Aminotransferase 115 U/L (12-78); Albumin Level 4.4 g/dl (3.5-5.0); Albumin/Globulin Ratio 1.6 (1.1-1.8); Alkaline Phosphatase 93 U/L (38-126); Aspartate Amino Transferase 381 U/L (14-36); Bilirubin,Total 1.3 mg/dl (0.2-1.3); Blood Urea Nitrogen 8 mg/dl (7-17); Calcium 9.1 mg/dl (8.4-10.2); Carbon Dioxide 30 mmol/L (22.0-30.0); Chloride 92 mmol/L (98-107); Creatinine Clearance Estimated 79 mL/min (50-200); Estimated Glomerular Filt Rate 72 ml/min (>60); GFR (African American) 87 ML/MIN (>60); Globulin 2.8 g/dL (1.3-3.2); Glucose 72 mg/dl (74-100); Sodium 134 mmol/L (136-145); Total Protein,Serum 7.2 g/dl (6.3-8.2)
[2023-03-20] MEDS: DULOXETINE 30MG CAPSULE.DR 30 MG PO (09:50)
[2023-03-20] MEDS: THIAMINE 100MG TABLET 100 MG PO (09:50)
[2023-03-20] MEDS: FOLIC ACID 1MG TABLET 1 MG PO (09:50)
[2023-03-20] MEDS: PANTOPRAZOLE 40MG VIAL 40 MG IV (09:51)
[2023-03-20] MEDS: ENOXAPARIN 40MG/0.4ML SYRINGE 40 MG SQ (09:53)
[2023-03-20] MEDS: POTASSIUM CHLORIDE 20MEQ TAB 20 MEQ PO (10:20)
[2023-03-20] MEDS: 0.9 % SODIUM CHLORIDE 250 ML 125 ML IV (10:21)
[2023-03-20] MEDS: KCl 10mEq/100ml 100 ML 100 MEQ IV (10:21)
--- NOTE | 2023-03-20 10:45 | EXP.DC.SUM ---
General Admission date:: 03/19/23 Discharge date: 03/20/23 HPI HPI HPI: This a 32-year-old female with PMHx of MDD. PTSD, alcohol abuse, vomiting resulting in pneumomediastino, initially worked up at [facility] with no evidence of esophageal tear. Patient presented today with vomiting. She states that she is been vomiting since yesterday. Nonbloody, nonbilious vomiting. No evidence of diarrhea. Patient has not had fevers or chills, but vomits even in the absence of p.o. intake. Concerned because of her previous experience. No abdominal pain in the absence of vomiting, but chest and esophageal burning from stomach acid. Patient reported last drink about 24 hrs ago. Admitted for further treatment and management Hospital Course Hospital Course Hospital Course: Patient was seen and evaluated at the bedside on the day of discharge. Patient is stable for discharge. Patient wishes to be discharged. All patient questions were answered and patient was given time to ask questions. Patient was discharged in stable condition. Patient understands that she can return to ER in case of any sudden changes in health. Total time spent on DC - 38 mins 32-year-old female with PMHx of MDD. PTSD, alcohol abuse, vomiting resulting in pneumomediastino, initially worked up at [facility] with no evidence of esophageal tear. Patient presented today with vomiting. She states that she is been vomiting since yesterday. On arrival, presented hypertensive, tachycardic, actively vomiting. Chemistry concerning for AST to ALT ratio of about 4-1 and mildly elevated alkaline phosphatase. Bilirubin normal. This concerning for alcoholic hepatitis. Ethanol level mildly elevated. CXR negative. Imaging reviewed. Findings discussed with ER provider for admission. Plan as follow: -Intractable nausea and vomiting, likely secondary to alcohol withdrawal - improved Chronic alcoholic hepatitis -Anxiety and depression: - improved Patient was previously on effexor. Unknown dose. Will start duloxetine, due to associated HTN Gave behavioural referral as OP Exam Data for Last 24 hours Vital signs and Labs for Last 24 Hours: Temp Pulse Resp BP Pulse Ox O2 Del Method 98.1 F 82 16 140/95 H 98 Room Air 03/20/23 07:37 03/20/23 07:37 03/20/23 07:37 03/20/23 07:37 03/20/23 07:37 03/20/23 09:00 Laboratory Results - last 24 hr 03/19/23 15:38: WBC 8.8, RBC 4.68, Hgb 14.5, Hct 44.1, MCV 94.2, MCH 31.0, MCHC 32.9, RDW 19.2 H, Plt Count 179, MPV 9.2, Neut % (Auto) 87.2 H, Lymph % (Auto) 5.6 L, [place] % (Auto) 6.1, Eos % (Auto) 0.6, Baso % (Auto) 0.5, Neut # (Auto) 7.7, Lymph # (Auto) 0.5 L, [place] # (Auto) 0.5, Eos # (Auto) 0.1, Baso # (Auto) 0.0, Total Counted 100, Neutrophils % (Manual) 87 H, Band Neutrophils % 1.0, Lymphocytes % (Manual) 10, Monocytes % (Manual) 1 L, Eosinophils % (Manual) 1, Platelet Estimate Normal, RBC Morphology Normal, PT 12.0, INR 1.12 H, APTT 24.4, Sodium 143, Potassium 3.8, Chloride 92 L, Carbon Dioxide 26, Anion Gap 28.8 H, BUN 11, Creatinine 0.90, Estimated Creat Clear 73, Estimated GFR 72, Est GFR ( Amer) 87, Glucose 116 H, Calcium 11.3 H, Phosphorus 6.8 H, Magnesium 0.8 L, Total Bilirubin 1.0, AST 672 H*, ALT 182 H, Alkaline Phosphatase 131 H, Troponin I < 0.01, Total Protein 8.8 H, Albumin 5.3 H, Globulin 3.5 H, Albumin/Globulin Ratio 1.5, Lipase 139, HCG, Quant < 2, Acetaminophen < 10 L, Plasma/Serum Alcohol 28 H 03/19/23 19:12: WBC 6.9, RBC 3.82 L, Hgb 12.2 D, Hct 36.8 L, MCV 96.4, MCH 31.9 H, MCHC 33.1, RDW 19.5 H, Plt Count 117 L D, MPV 8.9, Neut % (Auto) 85.8 H, Lymph % (Auto) 6.4 L, [place] % (Auto) 7.3, Eos % (Auto) 0.1, Baso % (Auto) 0.3, Neut # (Auto) 5.9, Lymph # (Auto) 0.4 L, [place] # (Auto) 0.5, Eos # (Auto) 0.0, Baso # (Auto) 0.0, Troponin I < 0.01 03/19/23 22:12: Lactate 2.3 H 03/20/23 02:40: Lactate 1.4 03/20/23 06:45: WBC 5.4, RBC 4.04 L, Hgb 12.6, Hct 37.9, MCV 93.8, MCH 31.1, MCHC 33.2, RDW 19.0 H, Plt Count 115 L, MPV 9.7, Neut % (Auto) 74.3, Lymph % (Auto) 18.7, [place] % (Auto) 6.6, Eos % (Auto) 0.1, Baso % (Auto) 0.3, Neut # (Auto) 4.0, Lymph # (Auto) 1.0, [place] # (Auto) 0.4, Eos # (Auto) 0.0, Baso # (Auto) 0.0, Sodium 134 L, Potassium 3.0 L D, Chloride 92 L, Carbon Dioxide 30, Anion Gap 15.0, BUN 8 D, Creatinine 0.90, Estimated Creat Clear 79, Estimated GFR 72, Est GFR ( Amer) 87, Glucose 72 L D, Calcium 9.1, Total Bilirubin 1.3, AST 381 H* D, ALT 115 H D, Alkaline Phosphatase 93, Total Protein 7.2, Albumin 4.4 D, Globulin 2.8, Albumin/Globulin Ratio 1.6 I & O for Last 24 hours: Intake & Output 03/17/23 03/18/23 03/19/23 03/20/23 23:59 23:59 23:59 23:59 Intake Total 1479 / 1479 Output Total Balance - 1478 / 1478 Weight 51.71 kg 56.563 kg Constitutional Constitutional: no acute distress *Routine HEENT Exam Head: Present normocephalic Eye: Present EOMI and PERRL ENT: Present mucous membranes moist *Routine Neck Exam Neck: Present supple; Absent lymphadenopathy *Routine Respiratory Exam Respiratory: Present CTA bilaterally *Routine Cardiovascular Exam Cardiovascular: Present RRR *Routine Abdominal Exam Abdominal: Present soft and normoactive bowel sounds; Absent tenderness *Routine Extremities Exam Extremities: Absent cyanosis, clubbing or edema *Routine Skin Exam Skin: Present warm; Absent rash *Routine Neurological Exam Neurological: Present alert and oriented X3 Results Data Completed and Pending Labs on day of discharge: Labs from last 24 hours 03/20/23 03/20/23 03/19/23 06:45 02:40 22:12 WBC 5.4 RBC 4.04 L Hgb 12.6 Hct 37.9 MCV 93.8 MCH 31.1 MCHC 33.2 RDW 19.0 H Plt Count 115 L MPV 9.7 Neut % (Auto) 74.3 Lymph % (Auto) 18.7 [place] % (Auto) 6.6 Eos % (Auto) 0.1 Baso % (Auto) 0.3 Neut # (Auto) 4.0 Lymph # (Auto) 1.0 [place] # (Auto) 0.4 Eos # (Auto) 0.0 Baso # (Auto) 0.0 Total Counted Neutrophils % (Manual) Band Neutrophils % Lymphocytes % (Manual) Monocytes % (Manual) Eosinophils % (Manual) Platelet Estimate RBC Morphology PT INR APTT Sodium 134 L Potassium 3.0 L D Chloride 92 L Carbon Dioxide 30 Anion Gap 15.0 BUN 8 D Creatinine 0.90 Estimated Creat Clear 79 Estimated GFR 72 Est GFR ( Amer) 87 Glucose 72 L D Lactate 1.4 2.3 H Calcium 9.1 Phosphorus Magnesium Total Bilirubin 1.3 AST 381 H* D ALT 115 H D Alkaline Phosphatase 93 Troponin I Total Protein 7.2 Albumin 4.4 D Globulin 2.8 Albumin/Globulin Ratio 1.6 Lipase HCG, Quant Acetaminophen Plasma/Serum Alcohol 03/19/23 03/19/23 19:12 15:38 WBC 6.9 8.8 RBC 3.82 L 4.68 Hgb 12.2 D 14.5 Hct 36.8 L 44.1 MCV 96.4 94.2 MCH 31.9 H 31.0 MCHC 33.1 32.9 RDW 19.5 H 19.2 H Plt Count 117 L D 179 MPV 8.9 9.2 Neut % (Auto) 85.8 H 87.2 H Lymph % (Auto) 6.4 L 5.6 L [place] % (Auto) 7.3 6.1 Eos % (Auto) 0.1 0.6 Baso % (Auto) 0.3 0.5 Neut # (Auto) 5.9 7.7 Lymph # (Auto) 0.4 L 0.5 L [place] # (Auto) 0.5 0.5 Eos # (Auto) 0.0 0.1 Baso # (Auto) 0.0 0.0 Total Counted 100 Neutrophils % (Manual) 87 H Band Neutrophils % 1.0 Lymphocytes % (Manual) 10 Monocytes % (Manual) 1 L Eosinophils % (Manual) 1 Platelet Estimate Normal RBC Morphology Normal PT 12.0 INR 1.12 H APTT 24.4 Sodium 143 Potassium 3.8 Chloride 92 L Carbon Dioxide 26 Anion Gap 28.8 H BUN 11 Creatinine 0.90 Estimated Creat Clear 73 Estimated GFR 72 Est GFR ( Amer) 87 Glucose 116 H Lactate Calcium 11.3 H Phosphorus 6.8 H Magnesium 0.8 L Total Bilirubin 1.0 AST 672 H* ALT 182 H Alkaline Phosphatase 131 H Troponin I < 0.01 < 0.01 Total Protein 8.8 H Albumin 5.3 H Globulin 3.5 H Albumin/Globulin Ratio 1.5 Lipase 139 HCG, Quant < 2 Acetaminophen < 10 L Plasma/Serum Alcohol 28 H DS: Diagnosis Discharge Diagnosis (1) Intractable nausea and vomiting: Status: Acute Code(s): R11.2 - Nausea with vomiting, unspecified (2) Alcohol withdrawal: Status: Acute Code(s): F10.939 - Alcohol use, unspecified with withdrawal, unspecified Qualifiers: Complication of substance-induced condition: uncomplicated Qualified Code(s): F10.930 - Alcohol use, unspecified with withdrawal, uncomplicated (3) Chronic alcoholic hepatitis: Status: Acute Code(s): K70.10 - Alcoholic hepatitis without ascites (4) Anxiety: Status: Acute Code(s): F41.9 - Anxiety disorder, unspecified (5) Depression: Status: Acute Code(s): F32.A - Depression, unspecified Qualifiers: Depression Type: major depressive disorder Major depression recurrence: recurrent Active/Remission status: remission status unspecified Qualified Code(s): F33.9 - Major depressive disorder, recurrent, unspecified Meds Home Medications and Allergies Home Medications Medication Instructions Recorded Confirmed Type albuterol sulfate 90 mcg/actuation 2 puff inhalation Q6H PRN 10/26/22 03/20/23 Rx aerosol inhaler (Proventil HFA) shortness of breath or wheezing #8.5 grams chlordiazepoxide HCl 5 mg capsule 5 mg PO TID PRN anxiety 3 days #9 03/20/23 Rx caps folic acid 1 mg tablet 1 mg PO DAILY 30 days #30 tabs 03/20/23 Rx multivitamin with folic acid 400 1 tab PO 1700 30 days #30 tabs 03/20/23 Rx mcg tablet (Tab-A-Laurence) pantoprazole 40 mg tablet,delayed 40 mg PO DAILY Acid Reflux 03/20/23 03/20/23 History release thiamine mononitrate (vit B1) 100 100 mg PO DAILY 30 days #30 tabs 03/20/23 Rx mg tablet New Prescriptions to Start Prescriptions: chlordiazepoxide HCl South,Irfan folic acid South,Irfan multivitamin with folic acid [Tab-A-Laurence] South,Irfan thiamine mononitrate (vit B1) South,Irfan Allergies Allergy/AdvReac Type Severity Reaction Status Date / Time Penicillins [PENICILLINS] Allergy Mild Verified 10/26/22 10:00 Discharge Plan Disposition Patient Disposition: Home, Self-Care Condition: Good Follow up Plan Follow up with: Judith Appiah APRN [Nurse Practitioner] - 1 week Provider,MD Eloina [Primary Care Provider] - 1 week Prescriptions/Medication Reconciliation: New thiamine mononitrate (vit B1) 100 mg Tablet 100 mg PO DAILY 30 Days Qty: 30 0RF multivitamin with folic acid [Tab-A-Laurence] 400 mcg Tablet 1 tab PO 1700 30 Days Qty: 30 0RF folic acid 1 mg Tablet 1 mg PO DAILY 30 Days Qty: 30 0RF chlordiazepoxide HCl 5 mg capsule 5 mg PO TID PRN (Reason: anxiety) 3 Days Qty: 9 0RF Continued albuterol sulfate [Proventil HFA] 90 mcg/actuation HFA aerosol inhaler 2 puff inhalation Q6H PRN (Reason: shortness of breath or wheezing) Qty: 8.5 5RF pantoprazole 40 mg tablet,delayed release (DR/EC) 40 mg PO DAILY Patient Comments: TAKE 1 TABLET BY MOUTH ONCE DAILY Problem Reconciliation Problems Reviewed?: Yes Patient Discharge Instructions ACTIVITY: Ambulate as tolerated DIET: continue same diet Patient Instructions: DI for Drug or Alcohol Withdrawal, Nausea and Vomiting-Adult Providers Primary Care Provider: Provider,Referral Admit Provider: Kane Dia Attending Provider: Kane iDa
--- NOTE | 2023-03-21 11:32 | SW/DCPLANNER ---
I received a referral on this patient regarding interest in alcohol detox program. I called and spoke w/ patient regarding resources: patient stated that she would have to call me back this afternoon once she goes to the store. I did provide my name and number to this patient.
[2023-03-22 06:20] LABS: HBsAg Screen Negative (Negative); HCV Ab Non Reactive (Non Reactive); Hep A Ab, IGM Negative (Negative); Hep B Core Ab, IgM Negative (Negative)
[2023-03-25 22:30] LABS: Vitamin B1 76.2 nmol/L (66.5-200.0)
== END 2023-03-20 12:36 | disposition home or self-care (01) ==
LOC: ER 18:09 → 2ND 19:03
PROVIDERS: Admitting Provider Internal Medicine; Emergency Provider Emergency Medicine; Visit Provider Internal Medicine
DX: F10.930 Alcohol use, unspecified with withdrawal, uncomplicated (principal); K70.10 Alcoholic hepatitis without ascites; R11.2 Nausea with vomiting, unspecified; F41.9 Anxiety disorder, unspecified; F33.9 Major depressive disorder, recurrent, unspecified; Y90.1 Blood alcohol level of 20-39 mg/100 ml; I10 Essential (primary) hypertension; Z87.891 Personal history of nicotine dependence; Z79.899 Other long term (current) drug therapy
CPT/HCPCS: 36415; 71045; 80053; 80074; 80329; 83605; 83690; 83735; 84100; 84425; 84484; 84702; 85007; 85025; 85610; 85730; 93005; 99285; G0378; J2405

== ENCOUNTER 2023-04-05 13:56 | Emergency (ER) | payer MEDICAID, SELFPAY ==
[2023-04-05 15:05] VITALS: BP 116/80; PULSE 117; RESP 18; TEMP 37.7; O2SAT 96; BMI 21.4
--- NOTE | 2023-04-05 15:17 | EXP.UTC ---
Discharge Plan Disposition Patient Disposition: Home, Self-Care Condition: Good Prescriptions Prescriptions: New azithromycin [Zithromax] 250 mg tablet 250 mg PO UD DOSE PK Qty: 6 0RF Rx Instructions: Take two (2) tablets today, then one (1) tablet days #2 thru #5 oseltamivir [Tamiflu] 75 mg capsule 75 mg PO BID Qty: 10 0RF [id number]-[id number] [Bromfed DM] 2-30-10 mg/5 mL Syrup 5 ml PO Q6H PRN (Reason: Cough) Qty: 240 0RF methylprednisolone 4 mg Tablets,Dose Pack 4 mg PO DIRECTED 6 Days Qty: 21 0RF Rx Instructions: Take 1 pack as directed for 6 days No Action albuterol sulfate [Proventil HFA] 90 mcg/actuation HFA aerosol inhaler 2 puff inhalation Q6H PRN (Reason: shortness of breath or wheezing) Qty: 8.5 5RF pantoprazole 40 mg tablet,delayed release (DR/EC) 40 mg PO DAILY Patient Comments: TAKE 1 TABLET BY MOUTH ONCE DAILY thiamine mononitrate (vit B1) 100 mg Tablet 100 mg PO DAILY 30 Days Qty: 30 0RF multivitamin with folic acid [Tab-A-Laurence] 400 mcg Tablet 1 tab PO 1700 30 Days Qty: 30 0RF folic acid 1 mg Tablet 1 mg PO DAILY 30 Days Qty: 30 0RF chlordiazepoxide HCl 5 mg capsule 5 mg PO TID PRN (Reason: anxiety) 3 Days Qty: 9 0RF Referrals Follow up/Referrals: Dariana Paz PA [Primary Care Provider] - See instructions Activity Restrictions/Add. Instructions Additional Instructions/Restrictions: Drink plenty of fluids. Take tylenol or ibuprofen for pain or fever. Take the medications as directed. Follow up with your regular doctor. GO TO THE ER FOR ANY WORSENING SYMPTOMS Clinical Impressions Clinical Impression: Influenza B, Pharyngitis Instructions Patient Instructions: DI for Pharyngitis/Tonsillopharyngitis -- Adult, DI for Influenza -- Adult, Oseltamivir Discharge ED Provider: Davi Norris [facility] General Stated complaint: cough Time Seen by Provider: 04/05/23 15:16 History of Present Illness Provider Complaint: She states that for the past 2 days she has had fever, chills, body aches, malaise, and cough. Related Data Home Medications Medication Instructions Recorded Confirmed pantoprazole 40 mg tablet,delayed 40 mg PO DAILY Acid Reflux 03/20/23 04/05/23 release Previous Rx's Medication Instructions Recorded albuterol sulfate 90 mcg/actuation 2 puff inhalation Q6H PRN 10/26/22 aerosol inhaler (Proventil HFA) shortness of breath or wheezing #8.5 grams chlordiazepoxide HCl 5 mg capsule 5 mg PO TID PRN anxiety 3 days #9 03/20/23 caps folic acid 1 mg tablet 1 mg PO DAILY 30 days #30 tabs 03/20/23 multivitamin with folic acid 400 1 tab PO 1700 30 days #30 tabs 03/20/23 mcg tablet (Tab-A-Laurence) thiamine mononitrate (vit B1) 100 100 mg PO DAILY 30 days #30 tabs 03/20/23 mg tablet azithromycin 250 mg tablet 250 mg PO UD DOSE PK #6 tabs 04/05/23 (Zithromax) [id number]-[id number]-CI 5 ml PO Q6H PRN Cough #240 mL 04/05/23 2 mg-30 mg-10 mg/5 mL oral syrup (Bromfed DM) methylprednisolone 4 mg tablets in 4 mg PO DIRECTED 6 days #21 tabs 04/05/23 a dose pack oseltamivir 75 mg capsule (Tamiflu) 75 mg PO BID #10 caps 04/05/23 Allergies Allergy/AdvReac Type Severity Reaction Status Date / Time Penicillins [PENICILLINS] Allergy Mild Verified 04/05/23 15:38 [facility] Disclaimer: The information contained in this section may have been updated after the patient was seen, as this information can be updated by other users. Medical History (Updated 04/05/23 @ 15:53 by Davi Norris APRN) Acute alcoholic liver disease Alcohol withdrawal Anxiety Chronic alcoholic hepatitis Depression Elevated liver enzymes Hepatitis Intractable nausea and vomiting Nexplanon insertion Seasonal allergies Surgical History (Updated 03/19/23 @ 21:37 by Elizabeth Garrido RN) S/P urethral diverticulectomy Tubal ligation status Family History Mother Uterine cancer Colon cancer Family history of diabetes mellitus type II Social History Smoking Status: Former smoker tobacco type: cigarettes packs per day: 1 smoking status start date: 2008 smoked: 14 smoking status stop date: 02/16/2023 quit status: quit date established second hand exposure: No alcohol intake: current substance use type: denies use current occupational status: other Travel in the last 8 weeks: None household members: children housing: house current occupational exposures/hazards: No caffeine: Yes ROS Obtained: Yes All systems reviewed & no additional complaints except as documented Constitutional Constitutional: Reports chills and Reports fever(s) Eyes Eyes: Denies eye discharge ENT Ears, Nose, Mouth, and Throat: Reports as per HPI Cardiovascular Cardiovascular: Denies chest pain Respiratory Respiratory: Denies chest congestion and Reports cough Gastrointestinal Gastrointestingal: Reports nausea; Denies abdominal pain, constipation, cramping, diarrhea or vomiting Musculoskeletal Musculoskeletal: Denies arthralgias Integumentary/Breasts Skin/Breast: Denies rash Neurologic Neurologic: Denies paresthesias Physical Exam General General appearance: alert and in no apparent distress Head Head exam: atraumatic, normocephalic and normal inspection Eye Eye exam: Present normal appearance, PERRL and EOMI ENT ENT exam: Present normal exam, normal oropharynx, mucous membranes moist, TM's normal bilaterally and normal external ear exam Neck Neck exam: Present normal inspection, full ROM and trachea midline; Absent meningismus or lymphadenopathy Chest Chest inspection: Present normal inspection and symmetric chest wall rise; Absent tenderness Respiratory Respiratory exam: Present normal lung sounds bilaterally; Absent respiratory distress Cardiovascular Cardiovascular exam: Present regular rate and normal rhythm; Absent JVD Abdominal Exam Abdominal exam: Present soft and normal bowel sounds; Absent distention, tenderness or guarding Extremities Exam Extremities exam: Present normal inspection, full ROM and normal capillary refill; Absent calf tenderness Back Exam Back exam: Present normal inspection; Absent tenderness Neurological Exam Neurological exam: Present alert and oriented X3 Psychiatric Psychiatric exam: Present normal affect and normal mood Skin Skin exam: Present warm, dry, intact and normal color Lymphatic Lymphatic Findings: no adenopathy Medical Decision Making Medical Records Medical records reviewed: No I reviewed the patient's medical records. Jaswinder Inquiry Pt receiving controlled substance: No Lab Data Lab results reviewed: Yes I reviewed the patient's lab results.
[2023-04-05 15:47] LABS: UTC Strep Screen (Rapid) Negative (Negative)
[2023-04-05 15:48] LABS: UTC Influenza A Antigen Negative (Negative); UTC Influenza B Antigen Positive (Negative)
[2023-04-05 16:16] VITALS: BP 116/80; PULSE 117; RESP 18; TEMP 37.7; O2SAT 96
== END 2023-04-05 16:00 | disposition home or self-care (01) ==
PROVIDERS: Emergency Provider Nurse Practitioner Family; PCP Physician Assistant
DX: J10.89 Influenza due to other identified influenza virus with other manifestations (principal); J02.9 Acute pharyngitis, unspecified; R05.9 Cough, unspecified; R50.9 Fever, unspecified; R53.81 Other malaise; M79.18 Myalgia, other site; Z87.891 Personal history of nicotine dependence
CPT/HCPCS: 87804; 87880; 99212; 99214; G0463

== ENCOUNTER 2023-05-10 15:52 | Observation (INO) | payer MEDICAID, SELFPAY ==
[2023-05-10] VITALS (12 sets, daily range): BP systolic 104–173; BP diastolic 86–116; PULSE 119–160; RESP 17–20; TEMP 36.6–36.8; O2SAT 94–98; BMI 21.0; BMI 21.9
--- NOTE | 2023-05-10 16:08 | HMH.EDGENADL ---
Discharge Plan Disposition Chief Complaint: Nausea/Vomiting/Diarrhea Discharge ED Provider: Montez Mendes General Adult HPI General Chief complaint: Nausea/Vomiting/Diarrhea Stated complaint: vomiting Time Seen by Provider: 05/10/23 15:57 Mode of Arrival: Ambulatory Source of Information: Patient Limitations: No Limitations Description of Symptoms (Recalled from ER Triage Doc. by RN): States she thinks that she is in alcohol withdraw. States her last drink was last night and was a half pint of vodka. Complaint of non stop vomiting and esophageal pain. History of Present Illness HPI narrative: 33-year-old female with past medical history significant for anxiety, depression, alcohol use, history of alcohol withdrawal, presents today for evaluation concerning nausea and vomiting over the past day. Patient states that she believes that she is in alcohol withdrawal at this time. She states that her last drink was last night, 1/2 pint of vodka. She reports the chest discomfort secondary to vomiting. Denies significant abdominal discomfort, fevers, chills, shortness of breath, dysuria, hematuria or any other associated symptoms at this time. Related Data Home Medications Medication Instructions Recorded Confirmed pantoprazole 40 mg tablet,delayed 40 mg PO DAILY Acid Reflux 03/20/23 04/05/23 release Previous Rx's Medication Instructions Recorded albuterol sulfate 90 mcg/actuation 2 puff inhalation Q6H PRN 10/26/22 aerosol inhaler (Proventil HFA) shortness of breath or wheezing #8.5 grams chlordiazepoxide HCl 5 mg capsule 5 mg PO TID PRN anxiety 3 days #9 03/20/23 caps folic acid 1 mg tablet 1 mg PO DAILY 30 days #30 tabs 03/20/23 multivitamin with folic acid 400 1 tab PO 1700 30 days #30 tabs 03/20/23 mcg tablet (Tab-A-Laurence) thiamine mononitrate (vit B1) 100 100 mg PO DAILY 30 days #30 tabs 03/20/23 mg tablet azithromycin 250 mg tablet 250 mg PO UD DOSE PK #6 tabs 04/05/23 (Zithromax) [id number]-[id number]-AQ 5 ml PO Q6H PRN Cough #240 mL 04/05/23 2 mg-30 mg-10 mg/5 mL oral syrup (Bromfed DM) methylprednisolone 4 mg tablets in 4 mg PO DIRECTED 6 days #21 tabs 02/06/24 a dose pack oseltamivir 75 mg capsule (Tamiflu) 75 mg PO BID #10 caps 04/05/23 Allergies Allergy/AdvReac Type Severity Reaction Status Date / Time Penicillins [PENICILLINS] Allergy Mild Verified 04/05/23 15:38 [facility] Disclaimer: The information contained in this section may have been updated after the patient was seen, as this information can be updated by other users. Medical History (Updated 04/05/23 @ 15:53 by Davi Norris APRN) Chronic alcoholic hepatitis Acute alcoholic liver disease Intractable nausea and vomiting Hepatitis Alcohol withdrawal Elevated liver enzymes Seasonal allergies Anxiety Depression Nexplanon insertion Surgical History (Updated 03/19/23 @ 21:37 by Elizabeth Garrido RN) Tubal ligation status S/P urethral diverticulectomy Family History Mother Uterine cancer Colon cancer Family history of diabetes mellitus type II Social History Smoking Status: Former smoker tobacco type: cigarettes packs per day: 1 smoking status start date: 2008 smoked: 14 smoking status stop date: 02/16/2023 quit status: quit date established second hand exposure: No alcohol intake: current substance use type: denies use current occupational status: other Travel in the last 8 weeks: None household members: children housing: house current occupational exposures/hazards: No caffeine: Yes ROS Obtained: Yes All systems reviewed & no additional complaints except as documented Physical Exam General General appearance: alert and in no apparent distress Head Head exam: atraumatic and normocephalic Eye Eye exam: Present normal appearance, PERRL and EOMI ENT ENT exam: Present normal oropharynx and mucous membranes moist Neck Neck exam: Present full ROM; Absent meningismus Respiratory Respiratory exam: Absent respiratory distress, wheezes, stridor or accessory muscle use Cardiovascular Cardiovascular exam: Present normal rhythm and tachycardia Abdominal Exam Abdominal exam: Present soft; Absent distention, tenderness, guarding, rebound or rigidity Neurological Exam Neurological exam: Present alert, oriented X3 and CN II-XII intact; Absent motor sensory deficit Psychiatric Psychiatric exam: Present normal affect and normal mood Skin Skin exam: Present warm and dry Medical Decision Making Medical Records Medical records reviewed: Yes I reviewed the patient's medical records. Jaswinder Inquiry Pt receiving controlled substance: No Jaswinder was queried for this patient: No Vital Signs: 05/10/23 15:53 05/10/23 16:17 05/10/23 16:30 Temperature 98.2 F Temperature Source Oral Pulse Rate 135 H 139 H Pulse Rate [Radial] 160 H Respiratory Rate 18 Blood Pressure 114/93 H 153/104 H Blood Pressure [Right Arm] 159/109 H Blood Pressure Mean [Right Arm] 125 Blood Pressure Source [Right Arm] Automatic Cuff Blood Pressure Position [Right Arm] Sitting 02 Sat by Pulse Oximetry 96 97 96 Oxygen Delivery Method Room Air Room Air Room Air 05/10/23 17:02 05/10/23 17:15 05/10/23 17:31 Temperature Temperature Source Pulse Rate 139 H 146 H 145 H Pulse Rate [Radial] Respiratory Rate Blood Pressure 163/110 H 135/110 H 153/109 H Blood Pressure [Right Arm] Blood Pressure Mean [Right Arm] Blood Pressure Source [Right Arm] Blood Pressure Position [Right Arm] 02 Sat by Pulse Oximetry 94 L 94 L 95 Oxygen Delivery Method Room Air Room Air Room Air 05/10/23 17:45 05/10/23 18:02 05/10/23 18:15 Temperature Temperature Source Pulse Rate 135 H 129 H 127 H Pulse Rate [Radial] Respiratory Rate Blood Pressure 155/93 H 104/86 L 168/98 H Blood Pressure [Right Arm] Blood Pressure Mean [Right Arm] Blood Pressure Source [Right Arm] Blood Pressure Position [Right Arm] 02 Sat by Pulse Oximetry 94 L 95 98 Oxygen Delivery Method Room Air Room Air Room Air 05/10/23 18:26 Temperature Temperature Source Pulse Rate 132 H Pulse Rate [Radial] Respiratory Rate Blood Pressure 173/116 H Blood Pressure [Right Arm] Blood Pressure Mean [Right Arm] Blood Pressure Source [Right Arm] Blood Pressure Position [Right Arm] 02 Sat by Pulse Oximetry 96 Oxygen Delivery Method Room Air Lab Data Lab Results 05/10/23 16:08: WBC 18.2 H, RBC 4.44, Hgb 14.5, Hct 45.7, MCV 103.1 H, MCH 32.6 H, MCHC 31.6 L, RDW 15.1, Plt Count 305, MPV 8.1, Neut % (Auto) 94.1 H, Lymph % (Auto) 3.3 L, [place] % (Auto) 2.0, Eos % (Auto) 0.2, Baso % (Auto) 0.4, Neut # (Auto) 17.1 H, Lymph # (Auto) 0.6 L, [place] # (Auto) 0.4, Eos # (Auto) 0.0, Baso # (Auto) 0.1, Total Counted 100, Neutrophils % (Manual) 92 H, Lymphocytes % (Manual) 7 L, Eosinophils % (Manual) 1, Platelet Estimate Normal, Macrocytosis 1+, Stomatocytes 1+, PT 11.7, INR 1.09, APTT 26.2, Sodium 142, Potassium 3.3 L, Chloride 96 L, Carbon Dioxide 14 L, Anion Gap 35.3 H, BUN 6 L, Creatinine 0.80, Estimated Creat Clear 81, Estimated GFR 82, Est GFR ( Amer) 99, Glucose 151 H, Calcium 11.2 H, Phosphorus 6.7 H, Magnesium 1.0 L, Total Bilirubin 1.4 H, AST 207 H, ALT 69, Alkaline Phosphatase 114, Total Protein 9.0 H, Albumin 5.4 H, Globulin 3.6 H, Albumin/Globulin Ratio 1.5, Lipase 122, Serum HCG, Qual Negative, Plasma/Serum Alcohol 34 H 05/10/23 16:08 05/10/23 16:08 Orders (Tests/Meds): ED MEDICATIONS Generic Name Dose Route Start Last Admin Trade Name Mitesh PRN Reason Stop Dose Admin Acetaminophen 650 mg 05/10/23 18:00 Acetaminophen 325mg Tab PO 06/09/23 17:59 Q4HP PRN Fever or Mild Pain (1-3) Diazepam 5 mg 05/10/23 16:12 05/10/23 17:09 Diazepam 10mg/2ml Syringe IV 06/09/23 16:11 5 mg Q1HP PRN Administration CIWA Score 8-15 Folic Acid 1 mg 05/10/23 18:15 Folic Acid 1mg Tablet PO 06/09/23 18:14 DAILY VICTOR MANUEL Heparin Sodium (Porcine) 5,000 unit 05/10/23 18:15 Heparin Sodium 5,000 Unit/Ml Vial SQ 06/09/23 18:14 Q8H VICTOR MANUEL Multivitamins 10 ml/ Thiamine 1,015 mls @ 150 mls/hr 05/10/23 16:45 05/10/23 17:16 HCl 100 mg/ Magnesium Sulfate IV 05/10/23 23:30 150 mls/hr 2 gm/ Lactated Ringer's .Q6H46M VICTOR MANUEL Administration Multivitamins 10 ml/ Thiamine 1,015 mls @ 125 mls/hr 05/10/23 18:15 HCl 100 mg/ Magnesium Sulfate IV 06/09/23 18:14 2 gm/ Lactated Ringer's DAILY VICTOR MANUEL Lorazepam 2 mg 05/10/23 18:07 05/10/23 19:00 Lorazepam 2mg/Ml Vial IV 06/09/23 18:06 2 mg Q1HP PRN Administration CIWA >16 Lorazepam 1 mg 05/10/23 18:07 Lorazepam 2mg/Ml Vial IV 06/09/23 18:06 Q1HP PRN CIWA Score 8-15 Multivitamins 1 each 05/11/23 17:00 Multivitamin Tablet PO 06/10/23 16:59 1700 VICTOR MANUEL Ondansetron HCl 4 mg 05/10/23 18:00 Ondansetron 4mg/2ml Vial IV 06/09/23 17:59 Q8HP PRN Nausea Ondansetron HCl 4 mg 05/10/23 18:53 05/10/23 19:00 Ondansetron 4mg/2ml Vial IV 05/10/23 18:54 4 mg ONCE ONE Administration Sodium Chloride 10 ml 05/10/23 18:07 Sodium Chloride 0.9% 10ml Vial IV 06/09/23 18:06 NEEDED PRN to Dilute Lorazepam inj Thiamine HCl 100 mg 05/10/23 18:15 Thiamine 100mg Tablet PO 05/12/23 09:01 DAILY [facility] Discontinued Medications Generic Name Dose Route Start Last Admin Trade Name Freq PRN Reason Stop Dose Admin Folic Acid 1 mg 05/11/23 09:00 Folic Acid 1mg Tablet PO 06/10/23 08:59 DAILY VICTOR MANUEL Folic Acid 1 mg 05/10/23 16:32 05/10/23 17:18 Folic Acid 1mg Tablet PO 05/10/23 16:33 1 mg ONCE ONE Administration Lactated Ringer's 500 mls @ 999 mls/hr 05/10/23 16:04 05/10/23 16:13 Lactated Ringer's 1000 Ml Bag IV 05/10/23 16:34 999 mls/hr .Q31M ONE Administration Multivitamins 1 each 05/10/23 17:00 Multivitamin Tablet PO 06/09/23 16:59 1700 [facility] Ondansetron HCl 4 mg 05/10/23 16:04 05/10/23 16:13 Ondansetron 4mg/2ml Vial IV 05/10/23 16:05 4 mg ONCE ONE Administration Thiamine HCl 100 mg 05/11/23 09:00 Thiamine 100mg Tablet PO 05/13/23 09:01 DAILY [facility] ORDERS Category Date Time Status Chest XR 2 view (NOT portable) [XR chest 2V] Stat Exams 05/10/23 16:19 Completed Activated Partial Thrombo Time Routine Lab 05/10/23 16:08 Completed Blood alcohol [Ethyl Alcohol] Stat Lab 05/10/23 16:08 Completed CBC w/Auto Diff [Complete Blood Count Auto Diff] Stat Lab 05/10/23 16:08 Completed CMP [Comprehensive Metabolic Panel] Stat Lab 05/10/23 16:08 Completed Complete Blood Count Auto Diff AMLAB Lab 05/11/23 06:00 Ordered Complete Blood Count Auto Diff AMLAB Lab 05/12/23 06:00 Ordered Complete Blood Count Auto Diff AMLAB Lab 05/13/23 06:00 Ordered Comprehensive Metabolic Panel AMLAB Lab 05/11/23 06:00 Ordered Comprehensive Metabolic Panel AMLAB Lab 05/12/23 06:00 Ordered Comprehensive Metabolic Panel AMLAB Lab 05/13/23 06:00 Ordered Drug Screen,Urine Routine Lab 05/10/23 16:14 Ordered Lactate Venous Stat Lab 05/10/23 16:04 Ordered Lipase Stat Lab 05/10/23 16:08 Completed Magnesium AMLAB Lab 05/11/23 06:00 Ordered Magnesium AMLAB Lab 05/12/23 06:00 Ordered Magnesium AMLAB Lab 05/13/23 06:00 Ordered Magnesium Routine Lab 05/10/23 16:08 Completed Phosphorous Routine Lab 05/10/23 16:08 Completed Prothrombin Time INR Routine Lab 05/10/23 16:08 Completed Serum [HCG Qualitative, Serum] Stat Lab 05/10/23 16:08 Completed ECG Data Tracing #1: I reviewed this ECG and interpreted as documented below: EKG independently interpreted by me. Sinus tachycardia with a rate of 131 bpm. No ischemic changes noted. Medical Decision Narrative: 33-year-old female with past medical history significant for anxiety, depression, alcohol use, history of alcohol withdrawal, presents today for evaluation concerning nausea and vomiting over the past day. Patient states that she believes that she is in alcohol withdrawal at this time. She states that her last drink was last night, 1/2 pint of vodka. She reports the chest discomfort secondary to vomiting. On assessment, the patient was hemodynamically stable and in no acute distress. Afebrile. She was tachycardic with rate in the 140s/150s at bedside. Chest is otherwise clear to auscultation. Abdomen was soft nondistended nontender to palpation. Physical exam findings unremarkable. CIWA score 11. Differential diagnoses include but limited to alcohol withdrawal, electrolyte disturbance, gastroenteritis, among others. Patient was started on CIWA protocol and was given Valium and a banana bag. She was also given a fluid bolus of LR and antiemetics for N/V. Her lab workup today has been remarkable for a WBC of 18.2. Stable coags. Potassium of 3.3. Chloride 96. Carbon dioxide of 14. Anion gap significantly elevated at 35.3. Magnesium of 1.0. AST 207. Negative screen. Alcohol level 34. Given that patient is in alcohol withdrawal and has electrolyte derangements, hypomagnesemia, I have consulted with hospital medicine and discussed management. They have agreed to evaluate and admit for further management. Patient agreeable to plan. Critical Care Critical Care Time Critical Care Time: No
[2023-05-10] MEDS: LACTATED RINGERS 1000ML 500 ML 999 ML IV (16:13)
[2023-05-10] MEDS: ONDANSETRON 4MG/2ML VIAL 4 MG IV ×3 (16:13→21:32)
--- NOTE | 2023-05-10 16:19 | XR_ITS ---
PROCEDURE INFORMATION: Exam: XR Chest Exam date and time: 05/10/2023 4:35 PM Age: 33 years old Clinical indication: Sternal or substernal pain; Additional info: Cp from vomitting TECHNIQUE: Imaging protocol: Radiologic exam of the chest. Views: 2 views. COMPARISON: CR XR CHEST PORTABLE 03/19/2023 4:41 PM FINDINGS: Lungs: No evidence of acute airspace infiltrate. No pulmonary edema. Pleural spaces: No significant pleural effusion. No pneumothorax. Heart/Mediastinum: Cardiomediastinal silouhette is within normal limits. Bones/joints: No evidence of acute osseous abnormality. IMPRESSION: No acute findings.
[2023-05-10 16:31] LABS: Chloride 96 mmol/L (98-107); Potassium 3.3 mmoL/L (3.5-5.1); Sodium 142 mmol/L (136-145)
[2023-05-10 16:33] LABS: Basophils # 0.1 K/mm3 (0-0.2); Basophils % 0.4 % (0.1-2.0); Eosinophils % 0.2 % (0.1-12.0); Hematocrit 45.7 % (37.0-47.0); Hemoglobin 14.5 g/dL (12.2-16.2); Lymphocytes # 0.6 K/mm3 (0.7-4.5); Lymphocytes % 3.3 % (10-50); Mean Corpuscular HGB Conc 31.6 g/dL (31.8-35.4); Mean Corpuscular Hemoglobin 32.6 pg (27.0-31.2); Mean Corpuscular Volume 103.1 fl (81-99); Mean Platelet Volume 8.1 fl (7.4-10.4); Monocytes # 0.4 K/mm3 (0.1-1.0); Neutrophils # 17.1 K/mm3 (1.8-7.8); Neutrophils % 94.1 % (37.0-80.0); Platelet Count 305 K/mm3 (142-424); Red Blood Count 4.44 M/mm3 (4.20-5.40); Red Cell Distribution Width 15.1 % (11.5-17.5); White Blood Count 18.2 K/mm3 (4.8-10.8)
[2023-05-10 16:34] LABS: Alanine Aminotransferase 69 U/L (12-78); Albumin Level 5.4 g/dl (3.5-5.0); Albumin/Globulin Ratio 1.5 (1.1-1.8); Alkaline Phosphatase 114 U/L (38-126); Anion Gap 35.3 mEq/L (5-15); Aspartate Amino Transferase 207 U/L (14-36); Bilirubin,Total 1.4 mg/dl (0.2-1.3); Blood Urea Nitrogen 6 mg/dl (7-17); Calcium 11.2 mg/dl (8.4-10.2); Carbon Dioxide 14 mmol/L (22.0-30.0); Creatinine Clearance Estimated 81 mL/min (50-200); Estimated Glomerular Filt Rate 82 ml/min (>60); GFR (African American) 99 ML/MIN (>60); Globulin 3.6 g/dL (1.3-3.2); Glucose 151 mg/dl (74-100); Lipase 122 U/L (23-300)
[2023-05-10 16:35] LABS: Phosphorous 6.7 mg/dl (2.5-4.5)
[2023-05-10 16:37] LABS: HCG Qualitative, Serum Negative (Negative)
[2023-05-10 16:39] LABS: Ethyl Alcohol 34 mg/dl (0-10); MANUAL DIFFERENTIAL MANUAL DIFFERENTIAL (MANUAL DIFF)
--- NOTE | 2023-05-10 16:52 | PC.NURSE ---
Critical called to Florentin MONTES DE OCA about magnesium of 1. , Florentin MONTES DE OCA notified of results
[2023-05-10] MEDS: diazePAM 10MG/2ML SYRINGE 5 MG IV (17:09)
[2023-05-10 17:15] LABS: Activated Partial Thrombo Time 26.2 seconds (22.8-30.6); INR 1.09 (0.9-1.1); Prothrombin Time 11.7 seconds (10.1-12.5)
[2023-05-10] MEDS: MVI, ADULT NO.1 WITH VIT K 10 ML, THIAMINE HCL 100 MG, MAGNESIUM SULFATE 2 GM in LACTAT... 150 ML IV (17:16)
[2023-05-10] MEDS: FOLIC ACID 1MG TABLET 1 MG PO (17:18)
[2023-05-10 17:36] LABS: Eosinophils % 1 % (0-3); Lymphocytes % 7 % (10-50); Macrocytosis 1+; Neutrophils % 92 % (42-76); Platelet Estimate Normal; Stomatocytes 1+; Total Cells Counted 100
--- NOTE | 2023-05-10 18:14 | PC.NURSE ---
I spoke with the HS to request a bed admission. Pt will be boarding at this time.
--- NOTE | 2023-05-10 18:24 | PC.NURSE ---
Admissions notified of admit for ETOH withdraw to . OBS. Pt will be placed in a reese bed until a room becomes available.
--- NOTE | 2023-05-10 18:32 | PC.NURSE ---
PT IS SETTING ON SIDE OF BED REQUESTED GI COCKTAIL, LIDOCAINE AND MORE ZOLFRAN RELAYED MESSAGE TO TAVON LEWIS,CALL LIGHT IN REACH
[2023-05-10] MEDS: LORazepam 2MG/ML VIAL 2 MG IV (19:00)
--- NOTE | 2023-05-10 19:25 | P.HP_ITS ---
History of Present Illness *Admission Date: 03/19/23 *Reason for visit:: N/V *History of present illness: This a 32-year-old female with PMHx of MDD. PTSD, anxiety, alcohol abuse, hx of pneumomediastino,with no evidence of esophageal tear. Patient presented today for evaluation concerning nausea and vomiting over the past day. Patient states that she believes that she is in alcohol withdrawal at this time. She states that her last drink was last night, 1/2 pint of vodka. She reports the chest discomfort secondary to vomiting. Denies significant abdominal discomfort, fevers, chills, shortness of breath, dysuria, hematuria or any other associated symptoms at this time She states that she is been vomiting since yesterday. Nonbloody, nonbilious vomiting. No evidence of diarrhea. Patient has not had fevers or chills, but vomits even in the absence of p.o. intake. Concerned because of her previous experience. No abdominal pain in the absence of vomiting, but chest and esophageal burning from stomach acid. Admitted for further treatment and management [facility] Disclaimer: The information contained in this section may have been updated after the patient was seen, as this information can be updated by other users. Medical History (Updated 05/11/23 @ 13:30 by Judith Appiah APRN) Posttraumatic stress disorder Chronic alcoholic hepatitis Acute alcoholic liver disease Intractable nausea and vomiting Hepatitis Alcohol withdrawal Elevated liver enzymes Seasonal allergies Anxiety Depression Nexplanon insertion Surgical History Tubal ligation status S/P urethral diverticulectomy Family History Mother Uterine cancer Colon cancer Family history of diabetes mellitus type II Social History (Updated 05/10/23 @ 21:25 by Alice Guerrero RN) Smoking Status: Former smoker tobacco type: cigarettes packs per day: 1 smoking status start date: 2008 smoked: 14 smoking status stop date: 02/16/2023 quit status: quit date established second hand exposure: No alcohol intake: current substance use type: denies use current occupational status: unemployed and other Travel in the last 8 weeks: None household members: children housing: house current occupational exposures/hazards: No caffeine: Yes Meds Home Medications and Allergies Home Medications Medication Instructions Recorded Confirmed Type albuterol sulfate 90 mcg/actuation 2 puff inhalation Q6H PRN 10/26/22 05/10/23 Rx aerosol inhaler (Proventil HFA) shortness of breath or wheezing #8.5 grams folic acid 1 mg tablet 1 mg PO DAILY 30 days #30 tabs 03/20/23 05/10/23 Rx multivitamin with folic acid 400 1 tab PO 1700 30 days #30 tabs 03/20/23 05/10/23 Rx mcg tablet (Tab-A-Laurence) pantoprazole 40 mg tablet,delayed 40 mg PO DAILY Acid Reflux 03/20/23 05/10/23 History release thiamine mononitrate (vit B1) 100 100 mg PO DAILY 30 days #30 tabs 03/20/23 05/10/23 Rx mg tablet New Prescriptions to Start Prescriptions: Allergies Allergy/AdvReac Type Severity Reaction Status Date / Time Penicillins [PENICILLINS] Allergy Mild Verified 04/05/23 15:38 Exam Data for Last 24 hours Vital signs and Labs for Last 24 Hours: Temp Pulse Resp BP Pulse Ox O2 Del Method 98.2 F 132 H 18 173/116 H 96 Room Air 05/10/23 15:53 05/10/23 18:26 05/10/23 15:53 05/10/23 18:26 05/10/23 18:26 05/10/23 18:26 Laboratory Results - last 24 hr 05/10/23 16:08: WBC 18.2 H, RBC 4.44, Hgb 14.5, Hct 45.7, MCV 103.1 H, MCH 32.6 H, MCHC 31.6 L, RDW 15.1, Plt Count 305, MPV 8.1, Neut % (Auto) 94.1 H, Lymph % (Auto) 3.3 L, [place] % (Auto) 2.0, Eos % (Auto) 0.2, Baso % (Auto) 0.4, Neut # (Auto) 17.1 H, Lymph # (Auto) 0.6 L, [place] # (Auto) 0.4, Eos # (Auto) 0.0, Baso # (Auto) 0.1, Total Counted 100, Neutrophils % (Manual) 92 H, Lymphocytes % (Manual) 7 L, Eosinophils % (Manual) 1, Platelet Estimate Normal, Macrocytosis 1+, Stomatocytes 1+, PT 11.7, INR 1.09, APTT 26.2, Sodium 142, Potassium 3.3 L, Chloride 96 L, Carbon Dioxide 14 L, Anion Gap 35.3 H, BUN 6 L, Creatinine 0.80, Estimated Creat Clear 81, Estimated GFR 82, Est GFR ( Amer) 99, Glucose 151 H, Calcium 11.2 H, Phosphorus 6.7 H, Magnesium 1.0 L, Total Bilirubin 1.4 H, AST 207 H, ALT 69, Alkaline Phosphatase 114, Total Protein 9.0 H, Albumin 5.4 H , Globulin 3.6 H, Albumin/Globulin Ratio 1.5, Lipase 122, Serum HCG, Qual Negative, Plasma/Serum Alcohol 34 H I & O for Last 24 hours: Intake & Output 05/07/23 05/08/23 05/09/23 05/10/23 22:59 23:59 23:59 23:59 Weight 52.163 kg Constitutional Constitutional: mild distress and cooperative *Routine HEENT Exam Head: Present normocephalic and atraumatic Eye: Present EOMI, PERRL and normal accommodation ENT: Present mucous membranes moist *Routine Neck Exam Neck: Present supple, full ROM and trachea midline *Routine Respiratory Exam Respiratory: Present normal respiratory effort, able to speak in complete sentences and symmetric chest movement; Absent respiratory distress *Routine Cardiovascular Exam Cardiovascular: Present RRR, Normal S1, Normal S2 and tachycardia *Routine Abdominal Exam Abdominal: Present soft, normoactive bowel sounds and guarding; Absent organomegaly *Routine Rectal Exam Rectal:: deferred *Routine Genitalia Exam Genitalia:: deferred *Routine Extremities Exam Extremities: Present full ROM and pulses intact; Absent cyanosis, clubbing or edema *Routine Skin Exam Skin: Present intact, dry and warm *Routine Neurological Exam Neurological: Present alert, oriented X3, normal reflexes, moving all extremities, normal speech and tremors Routine Psychiatric Exam Psychiatric: Present normal thought process, cooperative, depressed, anxious and agitated Assessment and Plan *Assessment and plan (1) Intractable nausea and vomiting: Status: Inactive Category: Medical Code(s): R11.2 - Nausea with vomiting, unspecified (2) Alcohol withdrawal: Status: Acute Qualifiers: Complication of substance-induced condition: uncomplicated Qualified Code(s): F10.930 - Alcohol use, unspecified with withdrawal, uncomplicated Category: Medical Code(s): F10.939 - Alcohol use, unspecified with withdrawal, unspecified (3) Hypokalemia: Status: Acute Category: Medical Code(s): E87.6 - Hypokalemia (4) Anxiety: Status: Inactive Category: Medical Code(s): F41.9 - Anxiety disorder, unspecified (5) Depression: Status: Inactive Qualifiers: Active/Remission status: remission status unspecified Depression Type: major depressive disorder Major depression recurrence: recurrent Qualified Code(s): F33.9 - Major depressive disorder, recurrent, unspecified Category: Medical Code(s): F32.A - Depression, unspecified Plan 32-year-old female with PMHx of MDD. PTSD, anxiety, alcohol abuse, hx of pneumomediastino,with no evidence of esophageal tear. Patient presented today for evaluation concerning nausea and vomiting over the past day. On arrival, presented hypertensive, tachycardic, actively vomiting. Chemistry concerning for AST mildly elevated alkaline phosphatase. Bilirubin normal. Ethanol level elevated. CXR negative. Imaging reviewed. Findings discussed with ER provider for admission. Plan as follow: -Intractable nausea and vomiting, likely secondary to alcohol withdrawal Hypokalemia Admit patient for medical services. Dispo MedSurg. Start continuous monitoring of CIWA CIWA protocol Vital signs per unit Banana bag with thiamine IV Continue with thiamine 100 mg daily Zofran IV Q4h as needed for nausea Advance diet as tolerated Seizure precaution. Lorazepam IV as needed for CIWA score greater than 8 Monitor daily CMP. Patient presented with open anion gap likely secondary to vitamin B-1 deficiency. Replaced Elevated AST .continue monitor Patient expressed concern to stop drinking. Will refer for social work. For detox program after medical stabilization -Anxiety and depression. Lovenox for DVT prophylaxis. Protonix 40 GI bleed prophylaxis. And history of GERD with esophagitis Full code Attending attestation Patient was seen and evaluated at the bedside myself, agree with KARLENE note.
--- NOTE | 2023-05-10 19:29 | ECG_ITS ---
APPROVED REPORT Exam: Resting ECG HR:131 bpm ECG Measurements Heart Rate 131 AXES AL 91 P 65 QRSd 86 QRS 40 QT 296 T -71 QTc 373 Conclusion SINUS TACHYCARDIA WITH SHORT AL INTERVAL MODERATE T-WAVE ABNORMALITY, CONSIDER ANTEROLATERAL ISCHEMIA [-0.1+ mV T-WAVE IN V3-V6] ABNORMAL ECG UNCONFIRMED REPORT Electronically signed by : RIK HOWARD, 05/10/2023 23:47:36
--- NOTE | 2023-05-10 20:11 | PC.NURSE ---
Report called to TAVON Jenkins
[2023-05-10] MEDS: HEPARIN SODIUM 5,000 UNIT/ML VIAL 5000 UNIT SQ (21:10)
[2023-05-10] MEDS: THIAMINE 100MG TABLET 100 MG PO (21:32)
[2023-05-11] VITALS: BP 140/93; PULSE 126; RESP 17; TEMP 36.6; O2SAT 98
[2023-05-11] MEDS: ONDANSETRON 4MG/2ML VIAL 4 MG IV ×3 (01:34→09:45)
[2023-05-11] MEDS: POTASSIUM CHLORIDE 20MEQ TAB 40 MEQ PO (03:21)
[2023-05-11 04:00] VITALS: BP 151/89; PULSE 121; RESP 17; TEMP 36.6; O2SAT 95; BMI 21.9
[2023-05-11] MEDS: HEPARIN SODIUM 5,000 UNIT/ML VIAL 5000 UNIT SQ ×3 (06:16→21:03)
[2023-05-11 07:28] LABS: Alanine Aminotransferase 43 U/L (12-78); Albumin Level 4.7 g/dl (3.5-5.0); Albumin/Globulin Ratio 1.6 (1.1-1.8); Alkaline Phosphatase 94 U/L (38-126); Anion Gap 16.7 mEq/L (5-15); Aspartate Amino Transferase 126 U/L (14-36); Bilirubin,Total 1.4 mg/dl (0.2-1.3); Blood Urea Nitrogen 8 mg/dl (7-17); Calcium 9.6 mg/dl (8.4-10.2); Carbon Dioxide 27 mmol/L (22.0-30.0); Chloride 93 mmol/L (98-107); Creatinine Clearance Estimated 96 mL/min (50-200); Estimated Glomerular Filt Rate 95 ml/min (>60); GFR (African American) 115 ML/MIN (>60); Globulin 2.9 g/dL (1.3-3.2); Glucose 99 mg/dl (74-100); Magnesium 1.7 mg/dl (1.6-2.3); Potassium 3.7 mmoL/L (3.5-5.1); Sodium 133 mmol/L (136-145); Total Protein,Serum 7.6 g/dl (6.3-8.2)
[2023-05-11 08:00] VITALS: BP 145/82; PULSE 92; RESP 18; TEMP 37.3; O2SAT 97
[2023-05-11] MEDS: MVI, ADULT NO.1 WITH VIT K 10 ML, THIAMINE HCL 100 MG, MAGNESIUM SULFATE 2 GM in LACTAT... 125 ML IV (08:05)
[2023-05-11] MEDS: FOLIC ACID 1MG TABLET 1 MG PO (08:05)
[2023-05-11] MEDS: THIAMINE 100MG TABLET 100 MG PO (08:05)
--- NOTE | 2023-05-11 09:27 | HMH.PHAINT1 ---
Pharmacy Intervention Comments: Verified home medications using external fill history and provider note from office visit in March.
[2023-05-11] MEDS: ACETAMINOPHEN 325MG TAB 650 MG PO (10:43)
[2023-05-11] MEDS: CALCIUM CARBONATE 500MG CHEWTAB 1000 MG PO (10:44)
[2023-05-11 11:56] VITALS: BP 139/90; PULSE 103; RESP 17; TEMP 37.3; O2SAT 97
[2023-05-11] MEDS: PROMETHAZINE HCL 25MG/ML 1ML VIAL 25 MG IV ×2 (12:32→19:40)
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
--- NOTE | 2023-05-11 13:54 | SW/DCPLANNER ---
I spoke w/ this patient regarding plans once medically stable for discharge. Alex Appiah was consulted on this patient and is set up to follow up in her outpatient office on 05/19/23 at 11:45AM. I did provide this patient w/ [facility] Resource List for when she is ready for discharge. Patient stated that she does not have any other needs/questions at this time. Patient may discharge home tomorrow. I will continue to follow up to assist w/ any needs/questions.
[2023-05-11 16:00] VITALS: BP 150/98; PULSE 91; RESP 16; TEMP 37.1; O2SAT 93
--- NOTE | 2023-05-11 17:06 | PC.NURSE ---
Patient score ciwa of 7, nausea medicine given. no relief with zofran so phenergan ordered and patient able to have relief. Headache alleviated with tylenol. VS stable and patient remained on room air.
--- NOTE | 2023-05-11 17:20 | P.PN_ITS ---
Subjective *Date: 05/11/23 *Time: 17:20 Interval history: patient was seen and evaluated at the bedside. complains of nausea, No reported acute events overnight, denies chest pain, shortness of breath, vomiting, abdominal pain. Exam Data for Last 24 hours Vital signs and Labs for Last 24 Hours: Temp Pulse Resp BP Pulse Ox O2 Del Method 98.7 F 91 H 16 150/98 H 93 L Room Air 05/11/23 16:00 05/11/23 16:00 05/11/23 16:05/11/23 16:00 05/11/23 16:00 05/11/23 17:00 Laboratory Results - last 24 hr 05/10/23 16:08: Total Counted 100, Neutrophils % (Manual) 92 H, Lymphocytes % (Manual) 7 L, Eosinophils % (Manual) 1, Platelet Estimate Normal, Macrocytosis 1+, Stomatocytes 1+, PT 11.7, INR 1.09, APTT 26.2 05/11/23 05:23: Sodium 133 L, Potassium 3.7, Chloride 93 L, Carbon Dioxide 27, A nion Gap 16.7 H, BUN 8 D, Creatinine 0.70, Estimated Creat Clear 96, Estimated GFR 95, Est GFR ( Amer) 115, Glucose 99 D, Calcium 9.6, Magnesium 1.7 D , Total Bilirubin 1.4 H, AST 126 H D, ALT 43 D, Alkaline Phosphatase 94, Total Protein 7.6, Albumin 4.7 D, Globulin 2.9, Albumin/Globulin Ratio 1.6 I & O for Last 24 hours: Intake & Output 05/08/23 05/09/23 05/10/23 05/11/23 23:59 23:59 23:59 23:59 Intake Total 1240 / 1240 Output Total 425 / 425 Balance 815 / 815 Weight 53.977 kg 53.977 kg Constitutional Constitutional: no acute distress *Routine HEENT Exam Head: Present normocephalic Eye: Present EOMI and PERRL ENT: Present mucous membranes moist *Routine Neck Exam Neck: Present supple; Absent lymphadenopathy *Routine Respiratory Exam Respiratory: Present CTA bilaterally *Routine Cardiovascular Exam Cardiovascular: Present RRR *Routine Abdominal Exam Abdominal: Present soft and normoactive bowel sounds; Absent tenderness *Routine Extremities Exam Extremities: Absent cyanosis, clubbing or edema *Routine Skin Exam Skin: Present warm; Absent rash *Routine Neurological Exam Neurological: Present alert and oriented X3 Assessment and Plan *Assessment and plan (1) Intractable nausea and vomiting: Status: Inactive Category: Medical Code(s): R11.2 - Nausea with vomiting, unspecified (2) Alcohol withdrawal: Status: Acute Qualifiers: Complication of substance-induced condition: uncomplicated Qualified Code(s): F10.930 - Alcohol use, unspecified with withdrawal, uncomplicated Category: Medical Code(s): F10.939 - Alcohol use, unspecified with withdrawal, unspecified (3) Hypokalemia: Status: Acute Category: Medical Code(s): E87.6 - Hypokalemia (4) Anxiety: Status: Inactive Category: Medical Code(s): F41.9 - Anxiety disorder, unspecified (5) Depression: Status: Inactive Qualifiers: Depression Type: major depressive disorder Major depression recurrence: recurrent Active/Remission status: remission status unspecified Qualified Code(s): F33.9 - Major depressive disorder, recurrent, unspecified Category: Medical Code(s): F32.A - Depression, unspecified Plan 32-year-old female with PMHx of MDD. PTSD, anxiety, alcohol abuse, hx of pneumomediastino,with no evidence of esophageal tear. Patient presented today for evaluation concerning nausea and vomiting over the past day. Intractable nausea and vomiting, likely secondary to alcohol withdrawal Hypokalemia Start continuous monitoring of CIWA CIWA protocol Banana bag with thiamine IV Continue with thiamine 100 mg daily Zofran IV Q4h as needed for nausea Advance diet as tolerated Seizure precaution. Behavioural health has been consulted -Anxiety and depression. Lovenox for DVT prophylaxis. Protonix 40 GI bleed prophylaxis. And history of GERD with esophagitis Full code continue CIWA with PRN ativan, DC 1-2days
[2023-05-11] MEDS: SODIUM CHLORIDE 0.9% 25ML BAG 25 ML IV (19:40)
[2023-05-11 19:56] VITALS: BP 145/88; PULSE 99; RESP 19; TEMP 37.1; O2SAT 100
[2023-05-11] MEDS: PANTOPRAZOLE 40MG TABLET 40 MG PO (20:29)
[2023-05-11 23:04] LABS: Basophils # 0.1 K/mm3 (0-0.2); Eosinophils % 0.6 % (0.1-12.0); Hematocrit 41.2 % (37.0-47.0); Lymphocytes # 2.2 K/mm3 (0.7-4.5); Lymphocytes % 28.9 % (10-50); Mean Corpuscular HGB Conc 31.6 g/dL (31.8-35.4); Mean Corpuscular Hemoglobin 32.5 pg (27.0-31.2); Mean Platelet Volume 8.5 fl (7.4-10.4); Monocytes # 0.3 K/mm3 (0.1-1.0); Monocytes % 4.2 % (1.7-9.3); Neutrophils # 4.9 K/mm3 (1.8-7.8); Neutrophils % 65.4 % (37.0-80.0); Platelet Count 177 K/mm3 (142-424); Red Cell Distribution Width 15.1 % (11.5-17.5); White Blood Count 7.5 K/mm3 (4.8-10.8)
[2023-05-12 04:00] VITALS: BP 146/93; PULSE 90; RESP 16; TEMP 37.5; O2SAT 98; BMI 21.9
[2023-05-12 06:01] LABS: Basophils # 0.1 K/mm3 (0-0.2); Basophils % 0.8 % (0.1-2.0); Eosinophils # 0.1 K/mm3 (0.0-0.4); Eosinophils % 0.7 % (0.1-12.0); Hematocrit 38.5 % (37.0-47.0); Hemoglobin 12.5 g/dL (12.2-16.2); Lymphocytes # 1.9 K/mm3 (0.7-4.5); Lymphocytes % 30.2 % (10-50); Mean Corpuscular HGB Conc 32.4 g/dL (31.8-35.4); Mean Corpuscular Hemoglobin 32.8 pg (27.0-31.2); Monocytes # 0.3 K/mm3 (0.1-1.0); Monocytes % 4.3 % (1.7-9.3); Neutrophils % 63.9 % (37.0-80.0); Platelet Count 174 K/mm3 (142-424); Red Blood Count 3.81 M/mm3 (4.20-5.40); Red Cell Distribution Width 14.8 % (11.5-17.5); White Blood Count 6.2 K/mm3 (4.8-10.8)
[2023-05-12 06:17] LABS: Alanine Aminotransferase 76 U/L (12-78); Albumin Level 4.1 g/dl (3.5-5.0); Albumin/Globulin Ratio 1.6 (1.1-1.8); Alkaline Phosphatase 79 U/L (38-126); Anion Gap 9.2 mEq/L (5-15); Aspartate Amino Transferase 334 U/L (14-36); Bilirubin,Total 1.2 mg/dl (0.2-1.3); Blood Urea Nitrogen 5 mg/dl (7-17); Calcium 8.9 mg/dl (8.4-10.2); Carbon Dioxide 29 mmol/L (22.0-30.0); Chloride 98 mmol/L (98-107); Creatinine Clearance Estimated 96 mL/min (50-200); Estimated Glomerular Filt Rate 95 ml/min (>60); GFR (African American) 115 ML/MIN (>60); Globulin 2.6 g/dL (1.3-3.2); Glucose 89 mg/dl (74-100); Magnesium 1.8 mg/dl (1.6-2.3); Potassium 3.2 mmoL/L (3.5-5.1); Sodium 133 mmol/L (136-145); Total Protein,Serum 6.7 g/dl (6.3-8.2)
--- NOTE | 2023-05-12 06:17 | PC.NURSE ---
Patient has rested well thus far in shift. Patient has only received phenergan once this shift with relief. Patient has been able to ambulate independently to bathroom and BSC to void. Call light within reach.
[2023-05-12] MEDS: HEPARIN SODIUM 5,000 UNIT/ML VIAL 5000 UNIT SQ ×3 (06:47→22:05)
[2023-05-12 07:56] VITALS: BP 153/95; PULSE 109; RESP 17; TEMP 37.3; O2SAT 96
[2023-05-12 08:00] VITALS: O2SAT 96
[2023-05-12] MEDS: THIAMINE 100MG TABLET 100 MG PO (08:29)
[2023-05-12] MEDS: FOLIC ACID 1MG TABLET 1 MG PO (08:29)
[2023-05-12] MEDS: MVI, ADULT NO.1 WITH VIT K 10 ML, THIAMINE HCL 100 MG, MAGNESIUM SULFATE 2 GM in LACTAT... 125 ML IV (08:40)
[2023-05-12 10:52] LABS: Barbiturates Screen,Urine Negative ng/ml (<200)
[2023-05-12 10:53] LABS: Benzodiazepines Screen,Urine Positive ng/ml (<200); Cannabinoid Screen,Urine Positive ng/ml (<50)
[2023-05-12 10:55] LABS: Cocaine Screen,Urine Negative ng/ml (<300); Methadone Screen,Urine Negative ng/ml (<300)
[2023-05-12 10:56] LABS: Opiate Screen,Urine Negative ng/ml (<300)
[2023-05-12 10:57] LABS: Phencyclidine Screen,Urine Negative ng/ml (<25)
[2023-05-12 11:00] LABS: Amphetamine/Metha Screen,Urine Negative ng/ml (<1000)
[2023-05-12 11:47] VITALS: BP 142/93; PULSE 98; RESP 18; TEMP 37.4; O2SAT 97
[2023-05-12 14:23] LABS: Aspartate Amino Transferase 349 U/L (14-36)
[2023-05-12] MEDS: SODIUM CHLORIDE 0.9% 25ML BAG 25 ML IV (14:26)
--- NOTE | 2023-05-12 15:15 | PC.NURSE ---
patient remains alert and oriented x4, and VSS. Patient has not c/o nausea/vomiting during my shift, she did c/o mild anxiety after talking to the doctor regarding her elevated liver labs this morning, labs were redrawn this afternoon and AST has worsened so pt will be moved from the unit to a room on the med/surg floor. CIWA score has remained 0 during my shift. call light in reach.
[2023-05-12 16:00] VITALS: BP 144/111; PULSE 96; RESP 16; TEMP 37.3; O2SAT 98
--- NOTE | 2023-05-12 16:16 | EXP.PN ---
Subjective *Date: 05/12/23 *Time: 16:16 Interval history: patient was seen and evaluated at the bedside. complains of nausea, denies chest pain, shortness of breath, vomiting, abdominal pain. Exam Data for Last 24 hours Vital signs and Labs for Last 24 Hours: Temp Pulse Resp BP Pulse Ox O2 Del Method 99.3 F 98 H 18 142/93 H 97 Room Air 05/12/23 11:47 05/12/23 11:47 05/12/23 11:47 05/12/23 11:47 05/12/23 11:47 05/12/23 14:57 Laboratory Results - last 24 hr 05/10/23 08:56: Urine Opiates Screen Negative, Urine Methadone Screen Negative, Ur Barbituates Screen Negative, Ur Phencyclidine Scrn Negative, Ur Amphetamines Screen Negative, U Benzodiazepines Scrn Positive H, Urine Cocaine Screen Negative, U Marijuana (THC) Screen Positive H 05/11/23 05:23: WBC Cancelled, Corrected WBC Cancelled, RBC Cancelled, Hgb Cancelled, Hct Cancelled, MCV Cancelled, MCH Cancelled, MCHC Cancelled, RDW Cancelled, Plt Count Cancelled, MPV Cancelled, Neut % (Auto) Cancelled, Lymph % (Auto) Cancelled, [place] % (Auto) Cancelled, Eos % (Auto) Cancelled, Baso % (Auto) Cancelled, Neut # (Auto) Cancelled, Lymph # (Auto) Cancelled, [place] # (Auto) Cancelled, Eos # (Auto) Cancelled, Baso # (Auto) Cancelled 05/11/23 22:43: WBC 7.5 D, RBC 4.00 L, Hgb 13.0, Hct 41.2, MCV 103.0 H, MCH 32.5 H, MCHC 31.6 L, RDW 15.1, Plt Count 177 D, MPV 8.5, Neut % (Auto) 65.4, Lymph % (Auto) 28.9, [place] % (Auto) 4.2, Eos % (Auto) 0.6, Baso % (Auto) 1.0, Neut # (Auto) 4.9, Lymph # (Auto) 2.2, [place] # (Auto) 0.3, Eos # (Auto) 0.0, Baso # (Auto) 0.1 05/12/23 05:24: WBC 6.2, RBC 3.81 L, Hgb 12.5, Hct 38.5, MCV 101.0 H, MCH 32.8 H, MCHC 32.4, RDW 14.8, Plt Count 174, MPV 9.0, Neut % (Auto) 63.9, Lymph % (Auto) 30.2, [place] % (Auto) 4.3, Eos % (Auto) 0.7, Baso % (Auto) 0.8, Neut # (Auto) 4.0, Lymph # (Auto) 1.9, [place] # (Auto) 0.3, Eos # (Auto) 0.1, Baso # (Auto) 0.1, Sodium 133 L, Potassium 3.2 L, Chloride 98, Carbon Dioxide 29, Anion Gap 9.2, BUN 5 L D, Creatinine 0.70, Estimated Creat Clear 96, Estimated GFR 95, Est GFR ( Amer) 115, Glucose 89, Calcium 8.9, Magnesium 1.8, Total Bilirubin 1.2, AST 334 H* D, ALT 76 D, Alkaline Phosphatase 79, Total Protein 6.7, Albumin 4.1 D, Globulin 2.6, Albumin/Globulin Ratio 1.6 05/12/23 14:43: AST 349 H* I & O for Last 24 hours: Intake & Output 05/09/23 05/10/23 05/11/23 05/12/23 23:59 23:59 23:59 23:59 Intake Total 1510 / 1510 840 / 840 Output Total 425 / 425 960 / 960 Balance 1085 / 1085 -120 / -120 Weight 53.977 kg 53.977 kg 53.977 kg Constitutional Constitutional: no acute distress *Routine HEENT Exam Head: Present normocephalic Eye: Present EOMI and PERRL ENT: Present mucous membranes moist *Routine Neck Exam Neck: Present supple; Absent lymphadenopathy *Routine Respiratory Exam Respiratory: Present CTA bilaterally *Routine Cardiovascular Exam Cardiovascular: Present RRR *Routine Abdominal Exam Abdominal: Present soft and normoactive bowel sounds; Absent tenderness *Routine Extremities Exam Extremities: Absent cyanosis, clubbing or edema *Routine Skin Exam Skin: Present warm; Absent rash *Routine Neurological Exam Neurological: Present alert and oriented X3 Assessment and Plan *Assessment and plan (1) Intractable nausea and vomiting: Status: Inactive Category: Medical Code(s): R11.2 - Nausea with vomiting, unspecified (2) Alcohol withdrawal: Status: Acute Qualifiers: Complication of substance-induced condition: uncomplicated Qualified Code(s): F10.930 - Alcohol use, unspecified with withdrawal, uncomplicated Category: Medical Code(s): F10.939 - Alcohol use, unspecified with withdrawal, unspecified (3) Hypokalemia: Status: Acute Category: Medical Code(s): E87.6 - Hypokalemia (4) Anxiety: Status: Inactive Category: Medical Code(s): F41.9 - Anxiety disorder, unspecified (5) Depression: Status: Inactive Qualifiers: Depression Type: major depressive disorder Major depression recurrence: recurrent Active/Remission status: remission status unspecified Qualified Code(s): F33.9 - Major depressive disorder, recurrent, unspecified Category: Medical Code(s): F32.A - Depression, unspecified Plan 32-year-old female with PMHx of MDD. PTSD, anxiety, alcohol abuse, hx of pneumomediastino,with no evidence of esophageal tear. Patient presented today for evaluation concerning nausea and vomiting over the past day Intractable nausea and vomiting, likely secondary to alcohol withdrawal Hypokalemia - monitor and electrolytes Start continuous monitoring of CIWA CIWA protocol AST is worsening, monitor, US RUQ Banana bag with thiamine IV Continue with thiamine 100 mg daily Zofran IV Q4h as needed for nausea Advance diet as tolerated Seizure precaution. Behavioural health has been consulted -Anxiety and depression Lovenox for DVT prophylaxis. Protonix 40 GI bleed prophylaxis. And history of GERD with esophagitis Full code continue CIWA with PRN ativan, DC 1-2days monitor liver panel, AST is trending up, f/u on RUQ US
[2023-05-12 20:00] VITALS: BP 162/94; PULSE 95; RESP 18; TEMP 37.1; O2SAT 100
[2023-05-12] MEDS: PANTOPRAZOLE 40MG TABLET 40 MG PO (20:33)
--- NOTE | 2023-05-13 03:38 | PC.NURSE ---
PATIENT'S BP HAS BEEN ELEVATED THIS SHIFT. CIWA SCORES 0. ASYMPTOMATIC. NPO SINCE MIDNIGHT FOR ABDOMINAL US.
[2023-05-13 04:00] VITALS: BP 161/106; PULSE 100; RESP 18; TEMP 37; O2SAT 100; BMI 21.0
[2023-05-13] MEDS: HEPARIN SODIUM 5,000 UNIT/ML VIAL 5000 UNIT SQ (05:05)
[2023-05-13 07:12] LABS: Basophils # 0.1 K/mm3 (0-0.2); Basophils % 0.9 % (0.1-2.0); Eosinophils # 0.1 K/mm3 (0.0-0.4); Eosinophils % 1.9 % (0.1-12.0); Hematocrit 39.6 % (37.0-47.0); Hemoglobin 12.5 g/dL (12.2-16.2); Lymphocytes # 1.5 K/mm3 (0.7-4.5); Lymphocytes % 26.4 % (10-50); Mean Corpuscular HGB Conc 31.4 g/dL (31.8-35.4); Mean Corpuscular Hemoglobin 32.5 pg (27.0-31.2); Mean Corpuscular Volume 103.4 fl (81-99); Mean Platelet Volume 8.7 fl (7.4-10.4); Monocytes # 0.2 K/mm3 (0.1-1.0); Monocytes % 4.2 % (1.7-9.3); Neutrophils # 3.8 K/mm3 (1.8-7.8); Neutrophils % 66.6 % (37.0-80.0); Platelet Count 168 K/mm3 (142-424); Red Blood Count 3.84 M/mm3 (4.20-5.40); Red Cell Distribution Width 14.8 % (11.5-17.5); White Blood Count 5.7 K/mm3 (4.8-10.8)
[2023-05-13 07:20] LABS: Alanine Aminotransferase 126 U/L (12-78); Albumin Level 4.4 g/dl (3.5-5.0); Albumin/Globulin Ratio 1.6 (1.1-1.8); Alkaline Phosphatase 77 U/L (38-126); Anion Gap 11.3 mEq/L (5-15); Aspartate Amino Transferase 344 U/L (14-36); Blood Urea Nitrogen 5 mg/dl (7-17); Calcium 8.8 mg/dl (8.4-10.2); Carbon Dioxide 27 mmol/L (22.0-30.0); Chloride 102 mmol/L (98-107); Creatinine Clearance Estimated 129 mL/min (50-200); Estimated Glomerular Filt Rate 140 ml/min (>60); GFR (African American) 170 ML/MIN (>60); Globulin 2.7 g/dL (1.3-3.2); Glucose 79 mg/dl (74-100); Magnesium 2.2 mg/dl (1.6-2.3); Potassium 3.3 mmoL/L (3.5-5.1); Sodium 137 mmol/L (136-145); Total Protein,Serum 7.1 g/dl (6.3-8.2)
[2023-05-13 08:00] VITALS: BP 152/115; PULSE 99; RESP 17; TEMP 36.9; O2SAT 100
[2023-05-13] MEDS: FOLIC ACID 1MG TABLET 1 MG PO (09:29)
--- NOTE | 2023-05-13 10:56 | EXP.DC.SUM ---
General Admission date:: 05/10/23 Discharge date: 05/13/23 HPI HPI HPI: This a 32-year-old female with PMHx of MDD. PTSD, anxiety, alcohol abuse, hx of pneumomediastino,with no evidence of esophageal tear. Patient presented today for evaluation concerning nausea and vomiting over the past day. Patient states that she believes that she is in alcohol withdrawal at this time. She states that her last drink was last night, 1/2 pint of vodka. She reports the chest discomfort secondary to vomiting. Denies significant abdominal discomfort, fevers, chills, shortness of breath, dysuria, hematuria or any other associated symptoms at this time She states that she is been vomiting since yesterday. Nonbloody, nonbilious vomiting. No evidence of diarrhea. Patient has not had fevers or chills, but vomits even in the absence of p.o. intake. Concerned because of her previous experience. No abdominal pain in the absence of vomiting, but chest and esophageal burning from stomach acid. Admitted for further treatment and management Hospital Course Hospital Course Hospital Course: This a 32-year-old female with PMHx of MDD. PTSD, anxiety, alcohol abuse, hx of pneumomediastino,with no evidence of esophageal tear. Patient presented today for evaluation concerning nausea and vomiting over the past day. Patient states that she believes that she is in alcohol withdrawal at this time. She states that her last drink was last night, 1/2 pint of vodka. She reports the chest discomfort secondary to vomiting. Denies significant abdominal discomfort, fevers, chills, shortness of breath, dysuria, hematuria or any other associated symptoms at this time She states that she is been vomiting since yesterday. Nonbloody, nonbilious vomiting. No evidence of diarrhea. Patient has not had fevers or chills, but vomits even in the absence of p.o. intake. Concerned because of her previous experience. No abdominal pain in the absence of vomiting, but chest and esophageal burning from stomach acid. Admitted for further treatment and management Exam Data for Last 24 hours Vital signs and Labs for Last 24 Hours: Temp Pulse Resp BP Pulse Ox O2 Del Method 98.4 F 99 H 17 152/115 H 100 Room Air 05/13/23 08:00 05/13/23 08:00 05/13/23 08:00 05/13/23 08:00 05/13/23 08:00 05/13/23 08:00 Laboratory Results - last 24 hr 05/10/23 08:56: Urine Opiates Screen Negative, Urine Methadone Screen Negative, Ur Barbituates Screen Negative, Ur Phencyclidine Scrn Negative, Ur Amphetamines Screen Negative, U Benzodiazepines Scrn Positive H, Urine Cocaine Screen Negative, U Marijuana (THC) Screen Positive H 05/12/23 14:43: AST 349 H* 05/13/23 06:04: WBC 5.7, RBC 3.84 L, Hgb 12.5, Hct 39.6, MCV 103.4 H, MCH 32.5 H, MCHC 31.4 L, RDW 14.8, Plt Count 168, MPV 8.7, Neut % (Auto) 66.6, Lymph % (Auto) 26.4, [place] % (Auto) 4.2, Eos % (Auto) 1.9, Baso % (Auto) 0.9, Neut # (Auto) 3.8, Lymph # (Auto) 1.5, [place] # (Auto) 0.2, Eos # (Auto) 0.1, Baso # (Auto) 0.1, Sodium 137, Potassium 3.3 L, Chloride 102, Carbon Dioxide 27, Anion Gap 11.3, BUN 5 L, Creatinine 0.50 L D, Estimated Creat Clear 129, Estimated GFR 140, Est GFR ( Amer) 170 D, Glucose 79, Calcium 8.8, Magnesium 2.2 D, Total Bilirubin 1.0, AST 344 H*, ALT 126 H D, Alkaline Phosphatase 77, Total Protein 7.1, Albumin 4.4, Globulin 2.7, Albumin/Globulin Ratio 1.6 I & O for Last 24 hours: Intake & Output 05/10/23 05/11/23 05/12/23 05/13/23 23:59 23:59 23:59 23:59 Intake Total 1510 / 1510 840 / 1200 360 / 360 Output Total 425 / 425 960 / 960 0 / 0 Balance 1085 / 1085 -120 / 240 360 / 360 Weight 53.977 kg 53.977 kg 53.977 kg 51.982 kg Constitutional Constitutional: no acute distress *Routine HEENT Exam Head: Present normocephalic Eye: Present EOMI and PERRL ENT: Present mucous membranes moist *Routine Neck Exam Neck: Present supple; Absent lymphadenopathy *Routine Respiratory Exam Respiratory: Present CTA bilaterally *Routine Cardiovascular Exam Cardiovascular: Present RRR *Routine Abdominal Exam Abdominal: Present soft and normoactive bowel sounds; Absent tenderness *Routine Extremities Exam Extremities: Absent cyanosis, clubbing or edema *Routine Skin Exam Skin: Present warm; Absent rash *Routine Neurological Exam Neurological: Present alert and oriented X3 Results Data Completed and Pending Labs on day of discharge: Labs from last 24 hours 05/13/23 05/12/23 05/10/23 06:04 14:43 08:56 WBC 5.7 RBC 3.84 L Hgb 12.5 Hct 39.6 MCV 103.4 H MCH 32.5 H MCHC 31.4 L RDW 14.8 Plt Count 168 MPV 8.7 Neut % (Auto) 66.6 Lymph % (Auto) 26.4 [place] % (Auto) 4.2 Eos % (Auto) 1.9 Baso % (Auto) 0.9 Neut # (Auto) 3.8 Lymph # (Auto) 1.5 [place] # (Auto) 0.2 Eos # (Auto) 0.1 Baso # (Auto) 0.1 Sodium 137 Potassium 3.3 L Chloride 102 Carbon Dioxide 27 Anion Gap 11.3 BUN 5 L Creatinine 0.50 L D Estimated Creat Clear 129 Estimated GFR 140 Est GFR ( Amer) 170 D Glucose 79 Calcium 8.8 Magnesium 2.2 D Total Bilirubin 1.0 AST 344 H* 349 H* ALT 126 H D Alkaline Phosphatase 77 Total Protein 7.1 Albumin 4.4 Globulin 2.7 Albumin/Globulin Ratio 1.6 Urine Opiates Screen Negative Urine Methadone Screen Negative Ur Barbituates Screen Negative Ur Phencyclidine Scrn Negative Ur Amphetamines Screen Negative U Benzodiazepines Scrn Positive H Urine Cocaine Screen Negative U Marijuana (THC) Screen Positive H DS: Diagnosis Discharge Diagnosis (1) Intractable nausea and vomiting: Status: Inactive Code(s): R11.2 - Nausea with vomiting, unspecified (2) Alcohol withdrawal: Status: Acute Code(s): F10.939 - Alcohol use, unspecified with withdrawal, unspecified Qualifiers: Complication of substance-induced condition: uncomplicated Qualified Code(s): F10.930 - Alcohol use, unspecified with withdrawal, uncomplicated (3) Hypokalemia: Status: Acute Code(s): E87.6 - Hypokalemia (4) Anxiety: Status: Inactive Code(s): F41.9 - Anxiety disorder, unspecified (5) Depression: Status: Inactive Code(s): F32.A - Depression, unspecified Qualifiers: Depression Type: major depressive disorder Major depression recurrence: recurrent Active/Remission status: remission status unspecified Qualified Code(s): F33.9 - Major depressive disorder, recurrent, unspecified Meds Home Medications and Allergies Home Medications Medication Instructions Recorded Confirmed Type albuterol sulfate 90 mcg/actuation 2 puff inhalation Q6H PRN 10/26/22 05/10/23 Rx aerosol inhaler (Proventil HFA) shortness of breath or wheezing #8.5 grams folic acid 1 mg tablet 1 mg PO DAILY 30 days #30 tabs 03/20/23 05/10/23 Rx multivitamin with folic acid 400 1 tab PO 1700 30 days #30 tabs 03/20/23 05/10/23 Rx mcg tablet (Tab-A-Laurence) pantoprazole 40 mg tablet,delayed 40 mg PO DAILY Acid Reflux 03/20/23 05/10/23 History release thiamine mononitrate (vit B1) 100 100 mg PO DAILY 30 days #30 tabs 03/20/23 05/10/23 Rx mg tablet New Prescriptions to Start Prescriptions: Allergies Allergy/AdvReac Type Severity Reaction Status Date / Time Penicillins [PENICILLINS] Allergy Mild Verified 04/05/23 15:38 Discharge Plan Disposition Patient Disposition: Home, Self-Care Condition: Fair Follow up Plan Follow up with: Ursula Bermudez APRN [Staff Physician] - 1 week (follow up for abnormal liver function test) Judith Appiah APRN [Nurse Practitioner] - 05/19/23 11:45 am Prescriptions/Medication Reconciliation: Continued albuterol sulfate [Proventil HFA] 90 mcg/actuation HFA aerosol inhaler 2 puff inhalation Q6H PRN (Reason: shortness of breath or wheezing) Qty: 8.5 5RF pantoprazole 40 mg tablet,delayed release (DR/EC) 40 mg PO DAILY Patient Comments: TAKE 1 TABLET BY MOUTH ONCE DAILY thiamine mononitrate (vit B1) 100 mg Tablet 100 mg PO DAILY 30 Days Qty: 30 0RF multivitamin with folic acid [Tab-A-Laurence] 400 mcg Tablet 1 tab PO 1700 30 Days Qty: 30 0RF folic acid 1 mg Tablet 1 mg PO DAILY 30 Days Qty: 30 0RF Problem Reconciliation Problems Reviewed?: Yes Patient Discharge Instructions ACTIVITY: Ambulate as tolerated DIET: continue same diet Providers Primary Care Provider: Dariana Paz Admit Provider: Kane Dia Attending Provider: Kane Dia
--- NOTE | 2023-05-13 15:33 | US_ITS ---
FINAL REPORT CLINICAL HISTORY: transaminitis COMPARISON: 10/13/2022 FINDINGS: Sonographic images of the right upper quadrant were obtained. The pancreas is partially obscured. There is mild increased echogenicity of the liver, consistent with fatty infiltration. The gallbladder appears normal without evidence of gallstones.There is no evidence of biliary ductal dilatation.The common duct measures 4mm. Limited images of the right kidney are unremarkable. IMPRESSION: Mild fatty infiltration of the liver. Otherwise unremarkable right upper quadrant ultrasound. Reviewed, Interpreted and Dictated by Juanito Boucher III, MD Transcribed by Alexa Villalobos Authenticated and [facility]
--- NOTE | 2023-05-18 13:38 | CARE MANAGER ---
Contacted patient related to hospital discharge. She states she is doing well. She is aware of her follow up appointments and has plans to go to them. She denies questions or concerns. TAVON Regan
== END 2023-05-13 11:51 | disposition home or self-care (01) ==
LOC: ER 18:59 → 2ND 19:01 → ICU 19:36 → 2ND 05-12 19:57
PROVIDERS: Admitting Provider Internal Medicine; Emergency Provider Emergency Medicine; PCP Physician Assistant; Visit Provider Internal Medicine
DX: F10.130 Alcohol abuse with withdrawal, uncomplicated (principal); Y90.1 Blood alcohol level of 20-39 mg/100 ml; F41.9 Anxiety disorder, unspecified; F32.A Depression, unspecified; E87.6 Hypokalemia; Z87.891 Personal history of nicotine dependence
CPT/HCPCS: 36415; 71046; 76705; 80053; 80307; 83690; 83735; 84100; 84450; 84703; 85007; 85025; 85610; 85730; 93005; 99285; G0378; J2405

== ENCOUNTER 2024-02-08 09:43 | Outpatient (CLI) | payer MEDICAID, SELFPAY ==
[2024-02-08 10:00] LABS: Basophils # 0.1 K/mm3 (0-0.2); Basophils % 0.6 % (0.1-2.0); Eosinophils # 0.1 K/mm3 (0.0-0.4); Eosinophils % 1.1 % (0.1-12.0); Hematocrit 38.2 % (37.0-47.0); Hemoglobin 12.6 g/dL (12.2-16.2); Lymphocytes # 2.2 K/mm3 (0.7-4.5); Lymphocytes % 20.9 % (10-50); Mean Corpuscular HGB Conc 32.9 g/dL (31.8-35.4); Mean Corpuscular Hemoglobin 28.6 pg (27.0-31.2); Mean Corpuscular Volume 86.7 fl (81-99); Mean Platelet Volume 7.9 fl (7.4-10.4); Monocytes # 0.5 K/mm3 (0.1-1.0); Neutrophils # 7.7 K/mm3 (1.8-7.8); Neutrophils % 72.5 % (37.0-80.0); Platelet Count 336 K/mm3 (142-424); Red Blood Count 4.41 M/mm3 (4.20-5.40); Red Cell Distribution Width 15.2 % (11.5-17.5); White Blood Count 10.7 K/mm3 (4.8-10.8)
[2024-02-08 10:24] LABS: Albumin Level 4.4 g/dl (3.5-5.0); Chloride 105 mmol/L (98-107); Potassium 3.7 mmoL/L (3.5-5.1); Sodium 133 mmol/L (136-145)
[2024-02-08 10:27] LABS: Alanine Aminotransferase 21 U/L (12-78); Alkaline Phosphatase 88 U/L (38-126); Anion Gap 6.7 mEq/L (5-15); Aspartate Amino Transferase 33 U/L (14-36); Bilirubin,Total 0.7 mg/dl (0.2-1.3); Blood Urea Nitrogen 13 mg/dl (7-17); Calcium 9.6 mg/dl (8.4-10.2); Carbon Dioxide 25 mmol/L (22.0-30.0); Cholesterol 268 mg/dl (140-200); Estimated Glomerular Filt Rate 95 ml/min (>60); GFR (African American) 115 ML/MIN (>60); Globulin 2.2 g/dL (1.3-3.2); Glucose 119 mg/dl (74-100); Total Protein,Serum 6.6 g/dl (6.3-8.2); Triglycerides 91 mg/dl (30-150); VLDL Cholesterol 18 mg/dL (0-40)
[2024-02-08 10:28] LABS: HDL Cholesterol 89 mg/dl (40-60)
[2024-02-08 10:31] LABS: Hemoglobin A1C 5.5 % (4.0-6.0)
[2024-02-08 10:40] LABS: Direct LDL Cholesterol 154.44 mg/dL (100-129)
[2024-02-08 10:44] LABS: Free T4 (Free Thyroxine) 0.91 ng/dl (0.78-2.19)
[2024-02-08 10:45] LABS: T4 (Thyroxine) 7.4 ug/dl (5.53-11.0)
[2024-02-08 10:58] LABS: Thyroid Stimulating Hormone 1.64 uIU/mL (0.465-4.68)
== END 2024-02-08 23:59 | disposition home or self-care (01) ==
LOC: LAB 09:44
PROVIDERS: Visit Provider Nurse Practitioner Family
DX: Z79.899 Other long term (current) drug therapy (principal)
CPT/HCPCS: 36415; 80050; 80053; 80061; 83036; 84436; 84439; 84443; 85025